=== PATIENT | male | born 1960 | race Caucasian/White ===

== ENCOUNTER 2016-03-03 09:00 | Outpatient (RCR) | payer OTHER ==
[~2016-03-03 09:00] MED LIST: /ADVA50050 INH; /AUGM875TA OR; /ESCI10TA OR; ALBUTEROL INH; AMOX50SS OR; ASPI81TA83 OR; BISAC5TA PO; BP MED PO; CHAN0.5P6 PO; COLA50CA3 PO; COMBIN INH; CORTISPORIN AU; DIOV160T5 OR; DUONSOL IN; FOLI1TAB OR; FOLI1TAB86 PO; GLUC500T OR; HYDR25TA6 OR; LEVOTHYROID PO; LEXAPRO PO; LORA1TAB PO; Lortab Elixir OR; NEBUMIS2 XX; NICO14DI TOP; OXAZ15CA PO; PERC7.5T12 PO; PRED15SO3 OR; PRED20TA PO; PROAAER IN; PULM1SUS IN; TRAZ50TA2 PO; VITAMIN B1 PO; ZEST10TA OR; ZOCO40TA OR; amoxil PO; deltasone; nexium; saline nasal spray
== END 2016-03-11 ==
LOC: M ST 09:00
PROVIDERS: ATTEND Otolaryngology
DX: C32.0 Malignant neoplasm of glottis (principal); Z93.0 Tracheostomy status
CPT/HCPCS: 92597; G9174; G9175; G9176

== ENCOUNTER 2016-03-13 08:30 | Outpatient (RCR) | payer OTHER | END 2016-04-08 | LOC: M ST 08:30 | PROVIDERS: ATTEND Otolaryngology | DX: C32.9 Malignant neoplasm of larynx, unspecified (principal); Z43.0 Encounter for attention to tracheostomy | CPT/HCPCS: 92597; G9174; G9175; G9176 ==

== ENCOUNTER 2016-04-29 08:56 | Outpatient (RCR) | payer MEDICAID, OTHER, SELFPAY | END 2016-05-09 | LOC: M ST 08:56 | PROVIDERS: ATTEND Otolaryngology | DX: Z51.89 Encounter for other specified aftercare (principal); Z93.0 Tracheostomy status ==

== ENCOUNTER 2016-05-12 09:54 | Outpatient (RCR) | payer MEDICAID, OTHER | END 2016-06-08 | LOC: M ST 09:54 | PROVIDERS: ATTEND Otolaryngology | DX: Z51.89 Encounter for other specified aftercare (principal); C32.0 Malignant neoplasm of glottis; Z43.0 Encounter for attention to tracheostomy; Z93.0 Tracheostomy status ==

== ENCOUNTER 2016-06-25 08:00 | Outpatient (RCR) | payer OTHER | END 2016-07-09 | LOC: M ST 08:00 | PROVIDERS: ATTEND Otolaryngology | DX: Z51.89 Encounter for other specified aftercare (principal); C32.0 Malignant neoplasm of glottis; Z43.0 Encounter for attention to tracheostomy; Z93.0 Tracheostomy status ==

== ENCOUNTER → 2016-06-26 | Outpatient (CLI) | payer OTHER ==
[2016-06-26 09:39] LABS: BASO % 0.4 % (0.0-1.0); EOS # 0.2 K/mm3 (0.0-0.50); EOS % 1.8 % (0.0-3.0); LARGE UNSTAINED CELL # 0.1 K/mm3 (0.0-0.4); LARGE UNSTAINED CELL % 1.3 % (0.0-4.0); LYMPH # 0.9 K/mm3 (1.5-4.5); LYMPH % 10.1 % (24.0-44.0); MEAN CORPUSCULAR HEMOGLOBIN 33.2 pg (27.0-33.0); MEAN CORPUSCULAR HGB CONC 35.4 g/dl (32.0-36.5); MEAN CORPUSCULAR VOLUME 93.7 fl (80.0-96.0); MONO # 0.7 K/mm3 (0.0-0.8); MONO % 8.1 % (0.0-5.0); NEUTROPHILS # 6.7 K/mm3 (1.8-7.7); NEUTROPHILS % 78.3 % (36.0-66.0); PLATELET COUNT, AUTOMATED 194 k/mm3 (150-450); WHITE BLOOD COUNT 8.5 K/mm3 (4.0-10.0)
[2016-06-26 09:41] LABS: ALBUMIN 3.5 GM/DL (3.2-5.2); ALBUMIN/GLOBULIN RATIO 1.21 (1.00-1.93); ALKALINE PHOSPHATASE 50 U/L (45-117); ALT/SGPT 27 U/L (12-78); ANION GAP 8 MEQ/L (8-16); AST/SGOT 21 U/L (15-37); BILIRUBIN,TOTAL 0.9 MG/DL (0.2-1.0); BLOOD UREA NITROGEN 8 MG/DL (7-18); CALCIUM LEVEL 8.6 MG/DL (8.5-10.1); CARBON DIOXIDE LEVEL 27 MEQ/L (21-32); CHLORIDE LEVEL 107 MEQ/L (98-107); CHOLESTEROL LEVEL 153 MG/DL (<200); CREATININE FOR GFR 0.92 MG/DL (0.70-1.30); GLOMERULAR FILTRATION RATE > 60.0 (>56); GLUCOSE, FASTING 156 MG/DL (70-105); POTASSIUM SERUM 4.1 MEQ/L (3.5-5.1); SODIUM LEVEL 142 MEQ/L (136-145); TOTAL PROTEIN 6.4 GM/DL (6.4-8.2); TRIGLYCERIDES LEVEL 110 MG/DL (<150)
== END ==
LOC: M LAB 08:51
PROVIDERS: ATTEND Nurse Practitioner Family
DX: I10 Essential (primary) hypertension (principal); E11.9 Type 2 diabetes mellitus without complications

== ENCOUNTER → 2016-07-08 | Outpatient (CLI) | payer OTHER ==
--- NOTE | 2016-07-09 08:39 | REP ---
Abdominal right upper quadrant ultrasound for elevated liver function tests: Comparison is a CT abdomen pelvis dated 11/12 2015 that demonstrated hepato steatosis. The gallbladder is partially contracted and not optimally evaluated. The patient stated he was not instructed to be n.p.o. prior to the study and had coffee prior to the examination. There is a negative Santamaria's sign to transducer pressure. No cholelithiasis is identified, however the study is somewhat insensitive in the absence of complete gallbladder distension. There is no intrahepatic or extrahepatic biliary duct dilatation. The common duct measures 5 mm in diameter. The hepatic parenchyma is attenuating and coarsened compatible with hepato steatosis. No focal hepatic masses are identified. The pancreas is obscured by bowel gas. The right kidney demonstrates no calculus, hydronephrosis, mass or cyst. Right kidney is normal size measuring 12.4 cm craniocaudad length. Impression: There are ultrasonographic findings compatible with hepato steatosis. There are no focal hepatic masses. No biliary duct dilatation. No ascites. Pancreas is obscured by bowel gas. Signed by Colby Thornton MD 07/09/2016 08:30 A
== END ==
LOC: M RAD 09:01
PROVIDERS: ATTEND Nurse Practitioner Family
DX: R79.89 Other specified abnormal findings of blood chemistry (principal)

== ENCOUNTER 2016-07-21 12:30 | Outpatient (RCR) | payer OTHER | END 2016-08-08 | LOC: M ST 12:30 | PROVIDERS: ATTEND Otolaryngology | DX: Z51.89 Encounter for other specified aftercare (principal); Z93.0 Tracheostomy status; C32.0 Malignant neoplasm of glottis ==

== ENCOUNTER 2016-08-15 08:31 | Outpatient (RCR) | payer OTHER | END 2016-09-08 | LOC: M ST 08:31 | PROVIDERS: ATTEND Otolaryngology | DX: Z51.89 Encounter for other specified aftercare (principal); C32.0 Malignant neoplasm of glottis; Z43.0 Encounter for attention to tracheostomy ==

== ENCOUNTER → 2016-11-04 | Outpatient (REF) | payer OTHER | LOC: M SFHCPLAZ 09:47 | PROVIDERS: ATTEND Nurse Practitioner Family | DX: E11.9 Type 2 diabetes mellitus without complications (principal); I10 Essential (primary) hypertension; E03.9 Hypothyroidism, unspecified; Z53.9 Procedure and treatment not carried out, unspecified reason ==

== ENCOUNTER → 2016-11-05 | Outpatient (REF) | payer OTHER ==
[2016-11-05 12:02] LABS: BASO # 0.1 10^3/uL (0.0-0.2); BASO % 1.2 % (0.0-1.0); EOS # 0.3 10^3/uL (0.0-0.50); EOS % 6.9 % (0.0-3.0); IMMATURE GRANULOCYTE % 0.5 % (0-0); LYMPH % 22.6 % (24.0-44.0); MEAN CORPUSCULAR HEMOGLOBIN 33.7 pg (27.0-33.0); MEAN CORPUSCULAR HGB CONC 35.7 g/dl (32.0-36.5); MEAN CORPUSCULAR VOLUME 94.5 fl (80.0-96.0); MONO # 0.6 10^3/uL (0.0-0.8); NEUTROPHILS # 2.3 10^3/uL (1.8-7.7); NEUTROPHILS % 54.8 % (36.0-66.0); PLATELET COUNT, AUTOMATED 174 10^3/uL (150-450); RED CELL DISTRIBUTION WIDTH 12.8 % (11.5-14.5); WHITE BLOOD COUNT 4.2 10^3/uL (4.0-10.0)
[2016-11-05 12:29] LABS: ALBUMIN 3.8 GM/DL (3.2-5.2); ALBUMIN/GLOBULIN RATIO 1.15 (1.00-1.93); ALKALINE PHOSPHATASE 61 U/L (45-117); ALT/SGPT 85 U/L (12-78); ANION GAP 9 MEQ/L (8-16); AST/SGOT 78 U/L (15-37); BLOOD UREA NITROGEN 9 MG/DL (7-18); CALCIUM LEVEL 9.4 MG/DL (8.5-10.1); CARBON DIOXIDE LEVEL 24 MEQ/L (21-32); CHLORIDE LEVEL 108 MEQ/L (98-107); CHOLESTEROL LEVEL 143 MG/DL (<200); CREATININE FOR GFR 0.84 MG/DL (0.70-1.30); GLOMERULAR FILTRATION RATE > 60.0 (>56); GLUCOSE, FASTING 119 MG/DL (70-105); POTASSIUM SERUM 3.7 MEQ/L (3.5-5.1); SODIUM LEVEL 141 MEQ/L (136-145); TOTAL PROTEIN 7.1 GM/DL (6.4-8.2); TRIGLYCERIDES LEVEL 161 MG/DL (<150)
== END ==
LOC: M SFHCPLAZ 09:14
PROVIDERS: ATTEND Nurse Practitioner Family
DX: E11.9 Type 2 diabetes mellitus without complications (principal); I10 Essential (primary) hypertension; E03.9 Hypothyroidism, unspecified

== ENCOUNTER 2016-12-26 12:58 | Outpatient (RCR) | payer OTHER | END 2017-01-08 | LOC: M ST 12:58 | PROVIDERS: ATTEND Otolaryngology | DX: Z51.89 Encounter for other specified aftercare (principal); Z43.0 Encounter for attention to tracheostomy ==

== ENCOUNTER 2017-01-27 09:29 | Outpatient (RCR) | payer OTHER | END 2017-02-08 | LOC: M ST 09:29 | DX: Z90.02 Acquired absence of larynx (principal) | CPT/HCPCS: 92597 ==

== ENCOUNTER → 2017-02-16 | Outpatient (CLI) | payer OTHER | LOC: M RAD 08:51 | DX: Z12.2 Encounter for screening for malignant neoplasm of respiratory organs (principal); J44.9 Chronic obstructive pulmonary disease, unspecified | CPT/HCPCS: G0297 ==

== ENCOUNTER 2017-02-25 09:59 | Outpatient (RCR) | payer OTHER | END 2017-03-11 | LOC: M ST 09:59 | DX: Z51.89 Encounter for other specified aftercare (principal); Z90.02 Acquired absence of larynx | CPT/HCPCS: 92524 ==

== ENCOUNTER 2017-06-03 12:57 | Outpatient (RCR) | payer OTHER | END 2017-06-08 | LOC: M ST 12:57 | DX: Z51.89 Encounter for other specified aftercare (principal); Z90.02 Acquired absence of larynx | CPT/HCPCS: 92597 ==

== ENCOUNTER 2017-06-24 13:04 | Outpatient (RCR) | payer OTHER | END 2017-07-09 | LOC: M ST 13:04 | DX: Z51.89 Encounter for other specified aftercare (principal); Z90.02 Acquired absence of larynx ==

== ENCOUNTER → 2017-08-04 | Outpatient (CLI) | payer OTHER ==
[2017-08-04 14:04] LABS: BASO % 0.5 % (0.0-1.0); EOS # 0.1 10^3/uL (0.0-0.50); EOS % 2.9 % (0.0-3.0); HEMATOCRIT 44.8 % (42.0-52.0); HEMOGLOBIN 16.3 g/dl (13.5-17.5); IMMATURE GRANULOCYTE % 0.2 % (0-3.0); LYMPH # 0.7 10^3/uL (1.5-4.5); LYMPH % 17.6 % (24.0-44.0); MEAN CORPUSCULAR HGB CONC 36.4 g/dl (32.0-36.5); MEAN CORPUSCULAR VOLUME 90.7 fl (80.0-96.0); MONO # 0.5 10^3/uL (0.0-0.8); MONO % 11.8 % (0.0-5.0); NEUTROPHILS # 2.8 10^3/uL (1.8-7.7); PLATELET COUNT, AUTOMATED 135 10^3/uL (150-450); RED BLOOD COUNT 4.94 10^6/uL (4.30-6.10); RED CELL DISTRIBUTION WIDTH 13.7 % (11.5-14.5); WHITE BLOOD COUNT 4.1 10^3/uL (4.0-10.0)
[2017-08-04 14:24] LABS: ALBUMIN 3.5 GM/DL (3.2-5.2); ALBUMIN/GLOBULIN RATIO 0.85 (1.00-1.93); ALKALINE PHOSPHATASE 65 U/L (45-117); ALT/SGPT 40 U/L (12-78); ANION GAP 12 MEQ/L (8-16); AST/SGOT 40 U/L (7-37); BILIRUBIN,TOTAL 1.3 MG/DL (0.2-1.0); BLOOD UREA NITROGEN 7 MG/DL (7-18); CALCIUM LEVEL 8.6 MG/DL (8.5-10.1); CARBON DIOXIDE LEVEL 28 MEQ/L (21-32); CHLORIDE LEVEL 111 MEQ/L (98-107); CHOLESTEROL LEVEL 149 MG/DL (<200); CHOLESTEROL RISK RATIO 2.292 (<5); CREATININE FOR GFR 0.81 MG/DL (0.70-1.30); GLOMERULAR FILTRATION RATE > 60.0 (>56); GLUCOSE, FASTING 149 MG/DL (70-100); HDL CHOLESTEROL 65 MG/DL (>40); LDL CHOLESTEROL 54.8 MG/DL (<100); NON-HDL-C 84 MG/DL; POTASSIUM SERUM 4.1 MEQ/L (3.5-5.1); SODIUM LEVEL 151 MEQ/L (136-145); THYROID STIMULATING HORMONE 0.273 uIU/ML (0.358-3.740); TOTAL PROTEIN 7.6 GM/DL (6.4-8.2); TRIGLYCERIDES LEVEL 146 MG/DL (<150)
[2017-08-04 14:26] LABS: ESTIMATED AVERAGE GLUCOSE 111 MG/DL (60-110); HEMOGLOBIN A1c 5.5 %
[2017-08-04 14:48] LABS: CREATININE, URINE 57.1 MG/DL; MALB URINE SIEMENS 5.4 MG/L; MAU/CREAT RATIO 9.4 MCG/MG (0.0-30.0)
== END ==
LOC: M LAB 13:19
DX: I10 Essential (primary) hypertension (principal); E11.9 Type 2 diabetes mellitus without complications; E03.9 Hypothyroidism, unspecified
CPT/HCPCS: 84443

== ENCOUNTER 2017-08-05 08:58 | Outpatient (RCR) | payer OTHER | END 2017-08-08 | LOC: M ST 08:58 | DX: Z90.02 Acquired absence of larynx (principal) | CPT/HCPCS: 92597 ==

== ENCOUNTER 2017-09-01 09:00 | Outpatient (RCR) | payer OTHER | END 2017-09-08 | LOC: M ST 09:00 | DX: Z90.02 Acquired absence of larynx (principal) | CPT/HCPCS: 92597 ==

== ENCOUNTER 2017-09-29 13:44 | Outpatient (RCR) | payer OTHER | END 2017-10-09 | LOC: M ST 13:44 | DX: Z51.89 Encounter for other specified aftercare (principal); Z98.890 Other specified postprocedural states | CPT/HCPCS: 92597 ==

== ENCOUNTER → 2017-11-05 | Outpatient (CLI) | payer OTHER | LOC: M ST 09:01 | DX: Z90.02 Acquired absence of larynx (principal) | CPT/HCPCS: 92597 ==

== ENCOUNTER → 2017-11-19 | Outpatient (REF) | payer OTHER ==
[2017-11-20 11:35] LABS: HEMATOCRIT 42.5 % (42.0-52.0); HEMOGLOBIN 15.3 g/dl (13.5-17.5); MEAN CORPUSCULAR HEMOGLOBIN 33.3 pg (27.0-33.0); MEAN CORPUSCULAR VOLUME 92.6 fl (80.0-96.0); PLATELET COUNT, AUTOMATED 151 10^3/uL (150-450); RED BLOOD COUNT 4.59 10^6/uL (4.30-6.10); RED CELL DISTRIBUTION WIDTH 13.2 % (11.5-14.5); WHITE BLOOD COUNT 4.5 10^3/uL (4.0-10.0)
[2017-11-20 12:24] LABS: ANION GAP 11 MEQ/L (8-16); BLOOD UREA NITROGEN 9 MG/DL (7-18); CALCIUM LEVEL 8.4 MG/DL (8.5-10.1); CARBON DIOXIDE LEVEL 26 MEQ/L (21-32); CHLORIDE LEVEL 105 MEQ/L (98-107); CREATININE FOR GFR 0.85 MG/DL (0.70-1.30); GLOMERULAR FILTRATION RATE > 60.0 (>56); GLUCOSE, FASTING 140 MG/DL (70-100); POTASSIUM SERUM 3.9 MEQ/L (3.5-5.1); SODIUM LEVEL 142 MEQ/L (136-145)
== END ==
LOC: M SFHCCLAY 14:27
DX: H25.9 Unspecified age-related cataract (principal)
CPT/HCPCS: 80048

== ENCOUNTER 2017-12-02 09:56 | Day surgery (SDC) | payer OTHER ==
[2017-12-02] MEDS: ACETYLCHOLINE OPHTH SOLN 1% 2ML (MIOCHOL-E) As Ordered (06:43)
[~2017-12-02 09:56] MED LIST changes: -/ADVA50050 INH; -/AUGM875TA OR; -/ESCI10TA OR; +ACETAMINOPHEN 325 MG TAB PO; -ALBUTEROL INH; -AMOX50SS OR; -ASPI81TA83 OR; -BISAC5TA PO; -BP MED PO; -CHAN0.5P6 PO; -COLA50CA3 PO; -COMBIN INH; -CORTISPORIN AU; -DIOV160T5 OR; -DUONSOL IN; -FOLI1TAB OR; -FOLI1TAB86 PO; -GLUC500T OR; -HYDR25TA6 OR; -LEVOTHYROID PO; -LEXAPRO PO; -LORA1TAB PO; -Lortab Elixir OR; -NEBUMIS2 XX; -NICO14DI TOP; -OXAZ15CA PO; -PERC7.5T12 PO; +PHENYLEPHRINE HCL 10 % OPHTH. SOL 5ML OS; -PRED15SO3 OR; -PRED20TA PO; -PROAAER IN; +PROPARACAINE 0.5% OPHTH SOL 15ML OS; -PULM1SUS IN; -TRAZ50TA2 PO; -VITAMIN B1 PO; -ZEST10TA OR; -ZOCO40TA OR; -amoxil PO; -deltasone; -nexium; -saline nasal spray
[2017-12-02 10:31] LABS: BEDSIDE GLUCOSE 138 MG/DL (70-105)
[2017-12-02] MEDS: PHENYLEPHRINE 2.5% OPHTH SOL 2ML OS (10:35)
[2017-12-02] MEDS: TROPICAMIDE 1% OPHTH SOLN 2ML OS (10:35)
[2017-12-02] MEDS: CYCLOPENTOLATE 2% OPHTH SOLN 2ML BTL OS (10:35)
[2017-12-02] MEDS: LIDOCAINE 3.5 % 1ML OPHTH TOPICAL GEL OU (10:36)
[2017-12-02] MEDS: OFLOXACIN 0.3 % (OCUFLOX) OPTH SOL 5ML OS (10:36)
[2017-12-02] MEDS ORDERED: fentaNYL 100 MCG/2 ML INJECTION (J3010) As Ordered (11:00)
[2017-12-02] MEDS ORDERED: MIDAZOLAM INJ 2 MG/2 ML VIAL (J2250) As Ordered (11:00)
[2017-12-02] MEDS: LIDOCAINE 1% SDV 5 ML VIAL As Ordered (11:27)
[2017-12-02] MEDS: CEFUROXIME 1MG/0.1ML INTRACAMERAL INJ As Ordered (11:27)
[2017-12-02] MEDS: POVIDONE-IODINE 5% OPHTH PREP SOL 30ML As Ordered (11:27)
[2017-12-02] MEDS: BALANCED SALT IRRIGATION SOLUTION 500ML BAG (FOR OR EYE MACHINE) As Ordered (11:34)
[2017-12-02] MEDS: HEALON DUET (HEALON 10MG/ML 0.55ML & HEALON ENDOCOAT 30MG/ML 0.85ML) As Ordered (11:34)
[2017-12-02] MEDS: AcetaZOLAMIDE 500 MG ER CAP PO (11:40)
[2017-12-02] MEDS ORDERED: AcetaZOLAMIDE 500 MG ER CAP As Ordered (11:53)
[2017-12-02] MEDS ORDERED: KETOROLAC 0.5% OPHTH SOLN OS (12:00)
[2017-12-02] MEDS ORDERED: TRIMETHOBENZAMIDE 300 MG CAP PO (12:00)
== END 2017-12-02 12:00 | disposition home or self-care (01) ==
LOC: M SDC 09:56
DX: H25.12 Age-related nuclear cataract, left eye (principal); E11.9 Type 2 diabetes mellitus without complications; E03.9 Hypothyroidism, unspecified; K21.9 Gastro-esophageal reflux disease without esophagitis; F32.9 Major depressive disorder, single episode, unspecified; Z92.3 Personal history of irradiation; J44.9 Chronic obstructive pulmonary disease, unspecified; Z79.899 Other long term (current) drug therapy; Z79.51 Long term (current) use of inhaled steroids; Z87.891 Personal history of nicotine dependence; Z85.818 Personal history of malignant neoplasm of other sites of lip, oral cavity, and pharynx
CPT/HCPCS: 66984

== ENCOUNTER 2017-12-04 12:15 | Outpatient (RCR) | payer OTHER | END 2017-12-09 | LOC: M ST 12:15 | DX: Z98.890 Other specified postprocedural states (principal) | CPT/HCPCS: 92597 ==

== ENCOUNTER → 2018-01-08 | Outpatient (RCR) | payer OTHER | LOC: M ST 10:35 | DX: Z90.02 Acquired absence of larynx (principal) | CPT/HCPCS: 92597 ==

== ENCOUNTER 2018-03-04 08:47 | Outpatient (RCR) | payer OTHER ==
[~2018-03-04 08:47] MED LIST changes: +/ADVA50050 INH; +/AUGM875TA OR; +/ESCI10TA OR; -ACETAMINOPHEN 325 MG TAB PO; +ALBU83IN INH; +ALBUTEROL INH; +AMLO2.5T3 PO; +AMOX50SS OR; +ASPI81TA83 OR; +BISAC5TA PO; +BP MED PO; +BROV15NE INH; +BUDE0.5S6 INH; +BUPR1TAB53 PO; +CHAN0.5P6 PO; +COLA50CA3 PO; +COMBIN INH; +CORTISPORIN AU; +DIOV160T5 OR; +DUONSOL IN; +FOLI1TAB OR; +FOLI1TAB11 PO; +FOLI1TAB86 PO; +GLUC500T OR; +HYDR25TA6 OR; +LEVO125T4 PO; +LEVOTHYROID PO; +LEXAPRO PO; +LORA1TAB PO; +LOSA100T50 PO; +Lortab Elixir OR; +NEBUMIS2 XX; +NICO14DI TOP; +OMEP20CA3 PO; +OXAZ15CA PO; +PERC7.5T12 PO; -PHENYLEPHRINE HCL 10 % OPHTH. SOL 5ML OS; +PRED15SO3 OR; +PRED20TA PO; +PROAAER IN; -PROPARACAINE 0.5% OPHTH SOL 15ML OS; +PULM1SUS IN; +TRAZ50TA2 PO; +VITAMIN B1 PO; +ZEST10TA OR; +ZOCO40TA OR; +amoxil PO; +deltasone; +nexium; +saline nasal spray
== END 2018-03-11 ==
LOC: M ST 08:47
PROVIDERS: ATTEND Otolaryngology
DX: Z51.89 Encounter for other specified aftercare (principal); Z98.890 Other specified postprocedural states; Z90.02 Acquired absence of larynx

== ENCOUNTER → 2018-04-08 | Outpatient (RCR) | payer OTHER | LOC: M ST 10:05 | PROVIDERS: ATTEND Otolaryngology | DX: Z51.89 Encounter for other specified aftercare (principal); Z90.02 Acquired absence of larynx; Z85.818 Personal history of malignant neoplasm of other sites of lip, oral cavity, and pharynx ==

== ENCOUNTER 2018-06-02 11:39 | Outpatient (RCR) | payer OTHER ==
[~2018-06-02 11:39] MED LIST changes: -/ADVA50050 INH; -/ESCI10TA OR; +ADVA1AER2 INH; +LEXA1TAB OR; +LEXA1TAB PO; -LEXAPRO PO
== END 2018-06-08 ==
LOC: M ST 11:39
PROVIDERS: ATTEND Otolaryngology
DX: Z90.02 Acquired absence of larynx (principal)

== ENCOUNTER → 2018-07-23 | Outpatient (CLI) | payer OTHER | LOC: M ST 13:50 | PROVIDERS: ATTEND Otolaryngology | DX: Z96.3 Presence of artificial larynx (principal) ==

== ENCOUNTER 2018-08-04 13:00 | Outpatient (RCR) | payer OTHER | END 2018-08-08 | LOC: M ST 13:00 | PROVIDERS: ATTEND Otolaryngology | DX: Z90.02 Acquired absence of larynx (principal) ==

== ENCOUNTER → 2018-08-09 | Outpatient (CLI) | payer OTHER ==
[~2018-08-09] MED LIST changes: +OMEP1CAP73 PO; -OMEP20CA3 PO
--- NOTE | 2018-08-09 13:41 | REP ---
REASON: Tobacco abuse. COMPARISON: Multiple, the latest 02/16/2017. As per the protocol only lung window images were sent to the read station for interpretation. No abnormal nodules, masses, or opacities have developed. Grossly, there is no change in appearance of the mediastinum or pulmonary sara. There is no mass or adenopathy. The imaged upper abdomen and imaged osseous structures are grossly within normal limits and unchanged from the prior exam. IMPRESSION: No change from the prior exam. Lung-RADS category 1. Electronically Signed by Ayaan Hamilton DO 08/09/2018 03:28 P
== END ==
LOC: M RAD 12:48
PROVIDERS: ATTEND Physician Assistant
DX: Z87.891 Personal history of nicotine dependence (principal)

== ENCOUNTER → 2018-09-13 | Outpatient (CLI) | payer OTHER ==
[~2018-09-13] MED LIST changes: -OMEP1CAP73 PO; +OMEP20CA4 PO
[2018-09-13 11:41] LABS: BASO # 0.1 10^3/uL (0.0-0.2); BASO % 1.4 % (0.0-1.0); EOS # 0.2 10^3/uL (0.0-0.50); EOS % 4.2 % (0.0-3.0); HEMATOCRIT 42.1 % (42.0-52.0); LYMPH # 0.9 10^3/uL (1.5-4.5); LYMPH % 20.4 % (24.0-44.0); MEAN CORPUSCULAR HGB CONC 35.6 g/dl (32.0-36.5); MEAN CORPUSCULAR VOLUME 95.5 fl (80.0-96.0); MONO # 0.5 10^3/uL (0.0-0.8); MONO % 11.7 % (0.0-5.0); NEUTROPHILS # 2.6 10^3/uL (1.8-7.7); NEUTROPHILS % 61.8 % (36.0-66.0); PLATELET COUNT, AUTOMATED 210 10^3/uL (150-450); RED BLOOD COUNT 4.41 10^6/uL (4.30-6.10); WHITE BLOOD COUNT 4.3 10^3/uL (4.0-10.0)
[2018-09-13 12:05] LABS: HEMOGLOBIN A1c 6.1 %
[2018-09-13 12:14] LABS: ALBUMIN 3.6 GM/DL (3.2-5.2); ALT/SGPT 51 U/L (12-78); BILIRUBIN,TOTAL 0.9 MG/DL (0.2-1.0); BLOOD UREA NITROGEN 9 MG/DL (7-18); CARBON DIOXIDE LEVEL 29 MEQ/L (21-32); CHLORIDE LEVEL 108 MEQ/L (98-107); CHOLESTEROL LEVEL 149 MG/DL (<200); CHOLESTEROL RISK RATIO 2.403 (<5); GLOMERULAR FILTRATION RATE > 60.0 (>56); GLUCOSE, FASTING 190 MG/DL (70-100); HDL CHOLESTEROL 62 MG/DL (>40); LDL CHOLESTEROL 70 MG/DL (<100); NON-HDL-C 87 MG/DL; POTASSIUM SERUM 4.2 MEQ/L (3.5-5.1); SODIUM LEVEL 143 MEQ/L (136-145); TOTAL PROTEIN 6.6 GM/DL (6.4-8.2); TRIGLYCERIDES LEVEL 83 MG/DL (<150)
[2018-09-13 12:14] LABS: CREATININE, URINE 91.5 MG/DL; MALB URINE SIEMENS 6.9 MG/L; MAU/CREAT RATIO 7.5 MCG/MG (0.0-30.0)
== END ==
LOC: M LAB 10:39
PROVIDERS: ATTEND Nurse Practitioner Family
DX: I10 Essential (primary) hypertension (principal); E11.9 Type 2 diabetes mellitus without complications; E03.9 Hypothyroidism, unspecified; R79.89 Other specified abnormal findings of blood chemistry

== ENCOUNTER → 2018-09-14 | Outpatient (CLI) | payer OTHER | LOC: M ST 08:49 | PROVIDERS: ATTEND Otolaryngology | DX: Z98.890 Other specified postprocedural states (principal) ==

== ENCOUNTER → 2018-09-21 | Outpatient (CLI) | payer OTHER ==
--- NOTE | 2018-09-21 11:15 | REP ---
RIGHT UPPER QUADRANT SONOGRAPHY: HISTORY: Elevated LFTs. FINDINGS: Scanning through right upper quadrant of the abdomen demonstrates a normal sized thin-walled gallbladder without visible stone or polyp. Common bile duct is normal measuring 0.5 cm in greatest diameter. Liver is somewhat hyperechoic diffusely which may reflect mild fatty infiltration. No focal liver lesion is appreciated. The pancreas is obscured by abdominal gas. There is no evidence of ascites or right renal abnormality. The right kidney measures 11.4 x 7.3 x 6.2 cm. IMPRESSION: Mildly echogenic liver parenchyma consistent with fatty infiltration. Otherwise negative right upper quadrant sonography. Pancreas is obscured by abdominal gas. Electronically Signed by Rayshawn Lorenzana MD 09/21/2018 07:33 P
== END ==
LOC: M RAD 08:11
PROVIDERS: ATTEND Nurse Practitioner Family
DX: R94.5 Abnormal results of liver function studies (principal)

== ENCOUNTER 2018-11-03 08:44 | Outpatient (RCR) | payer OTHER | END 2018-11-08 | LOC: M ST 08:44 | PROVIDERS: ATTEND Otolaryngology | DX: Z96.3 Presence of artificial larynx (principal) ==

== ENCOUNTER 2018-12-16 11:36 | Outpatient (RCR) | payer OTHER | END 2019-01-08 | LOC: M ST 11:36 | PROVIDERS: ATTEND Otolaryngology | DX: Z51.89 Encounter for other specified aftercare (principal) ==

== ENCOUNTER 2019-02-15 09:59 | Outpatient (RCR) | payer OTHER ==
[~2019-02-15 09:59] MED LIST changes: +OMEP1CAP73 PO; -OMEP20CA4 PO
== END 2019-03-11 ==
LOC: M ST 09:59
PROVIDERS: ATTEND Otolaryngology
DX: Z90.02 Acquired absence of larynx (principal); Z43.0 Encounter for attention to tracheostomy; Z51.89 Encounter for other specified aftercare; C32.0 Malignant neoplasm of glottis

== ENCOUNTER → 2019-03-08 | Outpatient (REF) | payer OTHER ==
[2019-03-08 18:41] LABS: ALBUMIN 4.2 GM/DL (3.2-5.2); ALT/SGPT 66 U/L (12-78); BILIRUBIN,TOTAL 1.1 MG/DL (0.2-1.0); BLOOD UREA NITROGEN 11 MG/DL (7-18); CALCIUM LEVEL 9.5 MG/DL (8.5-10.1); CARBON DIOXIDE LEVEL 27 MEQ/L (21-32); CHLORIDE LEVEL 108 MEQ/L (98-107); CHOLESTEROL LEVEL 150 MG/DL (<200); CHOLESTEROL RISK RATIO 2.142 (<5); CREATININE FOR GFR 0.88 MG/DL (0.70-1.30); GLOMERULAR FILTRATION RATE > 60.0 (>56); GLUCOSE, FASTING 175 MG/DL (70-100); HDL CHOLESTEROL 70 MG/DL (>40); LDL CHOLESTEROL 65 MG/DL (<100); NON-HDL-C 80 MG/DL; POTASSIUM SERUM 4.3 MEQ/L (3.5-5.1); SODIUM LEVEL 142 MEQ/L (136-145); TOTAL PROTEIN 7.5 GM/DL (6.4-8.2); TRIGLYCERIDES LEVEL 73 MG/DL (<150)
[2019-03-08 18:45] LABS: BASO # 0.1 10^3/uL (0.0-0.2); BASO % 0.9 % (0.0-1.0); EOS # 0.1 10^3/uL (0.0-0.5); EOS % 1.8 % (0.0-3.0); HEMATOCRIT 47.8 % (42.0-52.0); HEMOGLOBIN 16.4 g/dl (13.5-17.5); LYMPH # 0.7 10^3/uL (1.5-5.0); LYMPH % 12.3 % (24.0-44.0); MEAN CORPUSCULAR HEMOGLOBIN 33.1 pg (27.0-33.0); MEAN CORPUSCULAR HGB CONC 34.3 g/dl (32.0-36.5); MEAN CORPUSCULAR VOLUME 96.4 fl (80.0-96.0); MONO # 0.8 10^3/uL (0.0-0.8); MONO % 14.7 % (0.0-5.0); NEUTROPHILS % 69.8 % (36.0-66.0); PLATELET COUNT, AUTOMATED 207 10^3/uL (150-450); RED BLOOD COUNT 4.96 10^6/uL (4.30-6.10); WHITE BLOOD COUNT 5.7 10^3/uL (4.0-10.0)
[2019-03-08 19:03] LABS: HEMOGLOBIN A1c 6.1 %
== END ==
LOC: M SFHCCLAY 11:06
PROVIDERS: ATTEND Nurse Practitioner Family
DX: I10 Essential (primary) hypertension (principal); E11.9 Type 2 diabetes mellitus without complications

== ENCOUNTER 2019-03-31 08:59 | Outpatient (RCR) | payer OTHER | END 2019-04-09 | LOC: M PT 08:59 | PROVIDERS: ATTEND Otolaryngology | DX: Z47.89 Encounter for other orthopedic aftercare (principal); Z90.02 Acquired absence of larynx; Z51.89 Encounter for other specified aftercare; C32.0 Malignant neoplasm of glottis; Z93.0 Tracheostomy status ==

== ENCOUNTER 2019-04-19 09:44 | Outpatient (RCR) | payer OTHER | END 2019-05-10 | LOC: M ST 09:44 | PROVIDERS: ATTEND Otolaryngology | DX: Z90.02 Acquired absence of larynx (principal); Z43.0 Encounter for attention to tracheostomy; Z51.89 Encounter for other specified aftercare; C32.0 Malignant neoplasm of glottis; M54.2 Cervicalgia ==

== ENCOUNTER 2019-05-16 22:08 | Emergency (ER) | payer OTHER ==
[~2019-05-16] VITALS: Ht 190.5 cm; Wt 113.6 kg
[2019-05-16] MEDS ORDERED: OMEP-218 (22:17)
[2019-05-16 23:33] VITALS: BP 167/92
== END 2019-05-16 23:32 | disposition home or self-care (01) ==
LOC: M ED 22:08
DX: F10.220 Alcohol dependence with intoxication, uncomplicated (principal); E11.9 Type 2 diabetes mellitus without complications; I10 Essential (primary) hypertension; E03.9 Hypothyroidism, unspecified; J44.9 Chronic obstructive pulmonary disease, unspecified; F33.9 Major depressive disorder, recurrent, unspecified; F17.210 Nicotine dependence, cigarettes, uncomplicated; Z79.51 Long term (current) use of inhaled steroids; Z79.899 Other long term (current) drug therapy

== ENCOUNTER 2019-05-24 10:31 | Outpatient (RCR) | payer OTHER ==
[~2019-05-24 10:31] MED LIST changes: +OMEP-218
== END 2019-06-09 ==
LOC: M ST 10:31
PROVIDERS: ATTEND Otolaryngology
DX: Z43.0 Encounter for attention to tracheostomy (principal); Z90.02 Acquired absence of larynx; Z51.89 Encounter for other specified aftercare

== ENCOUNTER → 2019-06-01 | Outpatient (REF) | payer OTHER ==
[2019-06-01 16:39] LABS: BASO # 0.1 10^3/uL (0.0-0.2); BASO % 1.3 % (0.0-1.0); EOS # 0.1 10^3/uL (0.0-0.5); EOS % 2.2 % (0.0-3.0); HEMATOCRIT 42.9 % (42.0-52.0); HEMOGLOBIN 15.2 g/dl (13.5-17.5); LYMPH # 0.7 10^3/uL (1.5-5.0); LYMPH % 15.5 % (24.0-44.0); MEAN CORPUSCULAR HEMOGLOBIN 33.6 pg (27.0-33.0); MEAN CORPUSCULAR HGB CONC 35.4 g/dl (32.0-36.5); MEAN CORPUSCULAR VOLUME 94.7 fl (80.0-96.0); MONO # 0.5 10^3/uL (0.0-0.8); MONO % 12.1 % (0.0-5.0); PLATELET COUNT, AUTOMATED 193 10^3/uL (150-450); RED BLOOD COUNT 4.53 10^6/uL (4.30-6.10); WHITE BLOOD COUNT 4.5 10^3/uL (4.0-10.0)
[2019-06-01 16:41] LABS: ALBUMIN 3.8 GM/DL (3.2-5.2); ALT/SGPT 99 U/L (12-78); BLOOD UREA NITROGEN 11 MG/DL (7-18); CALCIUM LEVEL 9.5 MG/DL (8.5-10.1); CARBON DIOXIDE LEVEL 30 MEQ/L (21-32); CHLORIDE LEVEL 106 MEQ/L (98-107); CREATININE FOR GFR 0.82 MG/DL (0.70-1.30); GLOMERULAR FILTRATION RATE > 60.0 (>56); GLUCOSE, FASTING 211 MG/DL (70-100); MAGNESIUM LEVEL 1.9 MG/DL (1.8-2.4); POTASSIUM SERUM 4.1 MEQ/L (3.5-5.1); SODIUM LEVEL 141 MEQ/L (136-145)
== END ==
LOC: M SFHCCLAY 10:27
PROVIDERS: ATTEND Nurse Practitioner Family
DX: F10.20 Alcohol dependence, uncomplicated (principal); E83.42 Hypomagnesemia

== ENCOUNTER 2019-06-16 11:06 | Outpatient (RCR) | payer MEDICAID | END 2019-07-10 | LOC: M ST 11:06 | PROVIDERS: ATTEND Otolaryngology | DX: Z96.3 Presence of artificial larynx (principal) ==

== ENCOUNTER 2019-07-15 07:56 | Outpatient (RCR) | payer OTHER | END 2019-08-09 | LOC: M ST 07:56 | PROVIDERS: ATTEND Otolaryngology | DX: Z51.89 Encounter for other specified aftercare (principal); Z96.3 Presence of artificial larynx ==

== ENCOUNTER 2019-08-08 13:45 | Outpatient (RCR) | payer OTHER | END 2019-08-09 | LOC: M PT 13:45 | PROVIDERS: ATTEND Otolaryngology | DX: Z51.89 Encounter for other specified aftercare (principal); M54.2 Cervicalgia; M25.519 Pain in unspecified shoulder ==

== ENCOUNTER 2019-08-23 08:01 | Outpatient (RCR) | payer OTHER | END 2019-09-09 | LOC: M ST 08:01 | PROVIDERS: ATTEND Otolaryngology | DX: Z90.02 Acquired absence of larynx (principal) ==

== ENCOUNTER → 2019-10-06 | Outpatient (REF) | payer OTHER ==
[2019-10-06 19:48] LABS: ALBUMIN 4.1 GM/DL (3.2-5.2); ALT/SGPT 31 U/L (12-78); BILIRUBIN,TOTAL 1.1 MG/DL (0.2-1.0); BLOOD UREA NITROGEN 10 MG/DL (7-18); CALCIUM LEVEL 9.5 MG/DL (8.5-10.1); CARBON DIOXIDE LEVEL 32 MEQ/L (21-32); CHLORIDE LEVEL 106 MEQ/L (98-107); CREATININE FOR GFR 0.92 MG/DL (0.70-1.30); GLOMERULAR FILTRATION RATE > 60.0 (>56); GLUCOSE, FASTING 215 MG/DL (70-100); MAGNESIUM LEVEL 1.9 MG/DL (1.8-2.4); POTASSIUM SERUM 4.4 MEQ/L (3.5-5.1); SODIUM LEVEL 141 MEQ/L (136-145); TOTAL PROTEIN 7.2 GM/DL (6.4-8.2)
[2019-10-06 20:36] LABS: HEMOGLOBIN A1c 6.5 %
== END ==
LOC: M LABDRAWC 12:10
PROVIDERS: ATTEND Nurse Practitioner Family
DX: E11.9 Type 2 diabetes mellitus without complications (principal)

== ENCOUNTER 2019-10-12 09:12 | Outpatient (RCR) | payer OTHER, MEDICAID | END 2019-11-09 | LOC: M ST 09:12 | PROVIDERS: ATTEND Otolaryngology | DX: Z90.02 Acquired absence of larynx (principal); Z96.3 Presence of artificial larynx ==

== ENCOUNTER 2019-11-25 08:31 | Outpatient (RCR) | payer OTHER | END 2019-12-10 | LOC: M ST 08:31 | PROVIDERS: ATTEND Otolaryngology | DX: Z90.02 Acquired absence of larynx (principal); Z96.3 Presence of artificial larynx ==

== ENCOUNTER → 2019-12-14 | Outpatient (CLI) | payer OTHER ==
[2019-12-14 12:15] LABS: BLOOD UREA NITROGEN 9 MG/DL (7-18); CREATININE FOR GFR 0.85 MG/DL (0.70-1.30); GLOMERULAR FILTRATION RATE > 60.0 (>56)
== END ==
LOC: M LAB 10:35
PROVIDERS: ATTEND Otolaryngology
DX: R13.10 Dysphagia, unspecified (principal)

== ENCOUNTER → 2019-12-15 | Outpatient (CLI) | payer OTHER ==
[~2019-12-15] MED LIST changes: +ISOVUE-370 76% 100ML VIAL As Ordered ONE
--- NOTE | 2019-12-15 13:27 | REP ---
INDICATION: DYSPHAGIA, UNSPECIFIED. History of laryngectomy for laryngeal carcinoma in 2013. Regurgitating food. Rule out mass and esophageal dysmotility. COMPARISON: August 08, 2013.. TECHNIQUE: Helical scanning is acquired post contrast administration and 3 mm axial images are generated. Coronal and sagittal MPR images are generated. Contrast enhancement dose is 75 mL of intravenous Isovue 370. FINDINGS: Patient is status post total laryngectomy. Tracheostomy stoma appears patent. No evidence of recurrence mass lesion is seen the base of the neck. The lung apices are clear. Cervical esophagus is unremarkable. The nasopharynx and hypopharynx appear intact. Parotid glands are normal and symmetric. Thyroid glands have been removed. Submandibular glands are atrophic and or partially resected. No upper cervical lymphadenopathy is seen. There is heavy vascular calcification in the proximal ICA on the right with pinpoint stenosis in the proximal internal carotid artery. Moderate calcification is noted without high grade stenosis in the left proximal ICA. Vertebral arteries are patent and symmetric. The tongue and floor of mouth structures are unremarkable. On bone window settings there is no evidence of mandibular bony destructive lesion. Mild degenerative spondylosis changes are seen in the cervical spine. There is a unerupted left maxillary wisdom tooth in the floor of the left maxillary sinus. IMPRESSION: Status post laryngectomy and tracheostomy. No evidence of residual or recurrence neoplasm or adenopathy. High-grade stenoses in the proximal internal carotid arteries are felt to be present bilaterally, right more advanced than left. <Electronically signed by Rene Lorenzana > 12/15/19 [id number]
== END ==
LOC: M RAD 12:25
PROVIDERS: ATTEND Otolaryngology
DX: R13.10 Dysphagia, unspecified (principal)
CPT/HCPCS: 70491; Q9967

== ENCOUNTER 2019-12-21 17:36 | Outpatient (RCR) | payer OTHER ==
[~2019-12-21 17:36] MED LIST changes: -E-Z-GAS II EFFERVESCENT PACKET (SODIUM BICARB./CITRIC ACID/SIMETHICONE) As Ordered ONE; -E-Z-HD 98% w/w 340GM SUSP BTL As Ordered ONE; -E-Z-PAQUE 96% w/w SUSP 176GM BTL As Ordered ONE
== END 2020-01-09 ==
LOC: M ST 17:36
PROVIDERS: ATTEND Otolaryngology
DX: Z90.02 Acquired absence of larynx (principal); Z96.3 Presence of artificial larynx

== ENCOUNTER → 2019-12-21 | Outpatient (CLI) | payer OTHER ==
[~2019-12-21] MED LIST changes: +E-Z-GAS II EFFERVESCENT PACKET (SODIUM BICARB./CITRIC ACID/SIMETHICONE) As Ordered ONE; +E-Z-HD 98% w/w 340GM SUSP BTL As Ordered ONE; +E-Z-PAQUE 96% w/w SUSP 176GM BTL As Ordered ONE; -ISOVUE-370 76% 100ML VIAL As Ordered ONE
--- NOTE | 2019-12-21 17:13 | REP ---
INDICATION: DYSPHAGIA. TECHNIQUE: This procedure was performed by Shey Solis [facility], under the direct supervision of Dr. Lorenzana. Images were reviewed with Dr. Lorenzana prior to dictation. Liquid barium and gas producing crystals were given in the erect position, as well as liquid barium in the prone oblique position in order to perform a double contrast upper GI examination. FINDINGS: A single view PA chest x-ray is submitted as a biomass facilitator film. The superior mediastinal structures are midline. The heart size is within normal limits. The lungs are clear. Surgical clips are visualized from the patient's laryngeal ectomy for laryngeal carcinoma. The oral and pharyngeal stages of deglutition demonstrate a pooling of contrast in the hypopharynx with a delay in swallow. Once past the hypopharynx esophageal transport is prompt and efficient and there is no evidence of esophagitis, stricture, mass, or mucosal ring. However tertiary contractions were visualized throughout the exam. There is no evidence of a hiatal hernia. Gastroesophageal reflux was visualized to the level of the trudy.. 0.3 minutes of fluoroscopy time was utilized for this procedure. Some fluoroscopic images are performed with last image hold technology. These images require no additional radiation. IMPRESSION: 1. Pooling of contrast in the hypopharynx with a delay in swallow. 2. Tertiary contractions were visualized throughout the exam. 3. Gastroesophageal reflux to the level of the trudy. <Electronically signed by Shey Solis > 12/21/19 [id number] <Electronically signed by Rene Lorenzana > 12/21/19 [id number]
== END ==
LOC: M RAD 07:53
PROVIDERS: ATTEND Otolaryngology
DX: R13.10 Dysphagia, unspecified (principal)

== ENCOUNTER → 2019-12-30 | Outpatient (CLI) | payer OTHER ==
--- NOTE | 2020-01-17 09:16 | REP ---
INDICATION: STENOSIS OF CAROTID ART MAXIMILIANO COMPARISON: Comparison carotid sonography November 13, 2011.. TECHNIQUE: Real-time ultrasound evaluation and duplex Doppler interrogation of the extracranial carotid vasculature is performed. FINDINGS: Antegrade flow is observed in both vertebral arteries. Right carotid: The right common carotid artery shows diffuse intimal thickening but is otherwise unremarkable. There moderate mixed plaquing in the right carotid bulb and proximal ICA on two-dimensional scanning. Color flow and spectral Doppler interrogation are unremarkable on the right. Velocity chart right carotid: Right CCA PSV: 63 cm/S Right ICA PSV: 105 cm/S Right ICA EDV: 48 cm/S Right ECA PSV: 94 cm/S Right ICA/CCA ratio: 1.7 Left carotid: The left common carotid artery shows diffuse intimal thickening but is otherwise unremarkable. There is moderate mixed plaquing in the left carotid bulb and proximal ICA on two-dimensional scanning. Color flow and spectral Doppler interrogation are unremarkable on the left. Velocity chart left carotid: Left CCA PSV: 63 cm/S Left ICA PSV: 159 cm/S Left ICA EDV: 52 cm/S Left ECA PSV: 100 cm/S Left ICA/CCA ratio: 2.5 IMPRESSION: Less than 50% category narrowing in the right internal carotid artery by Doppler velocity criteria. 50-69% category narrowing in the left ICA by Doppler velocity criteria. Doppler velocities have increased somewhat in the left ICA in the interval since the 2011 study <Electronically signed by Rene Lorenzana > 01/17/20 0912
== END ==
LOC: M RAD 06:23
PROVIDERS: ATTEND Nurse Practitioner Family
DX: I65.23 Occlusion and stenosis of bilateral carotid arteries (principal)

== ENCOUNTER → 2020-01-18 | Outpatient (CLI) | payer OTHER ==
--- NOTE | 2020-01-18 14:56 | REP ---
INDICATION: ATHEROSCLEROSIS. COMPARISON: None. TECHNIQUE: Bilateral lower extremity arterial Doppler ultrasound. FINDINGS: Ankle brachial indices are measured at 1.0 on the right and 0.76 on the left. Normal triphasic waveforms are noted throughout the right lower extremity arteries. Mild to moderate plaquing is observed bilaterally. Monophasic arterial Doppler waveforms are noted at and distal to the mid superficial femoral artery artery on the left. Stenosis is seen at the mid SFA on the left with elevated systolic velocity. Right lower extremity arterial Doppler velocity chart: Right NEWS BROADCASTER PSV 161 cm/S Profundal 143 Proximal SFA 107 Mid SFA 93 Distal SFA 103 Popliteal 49 Proximal VAL 49 Tibial-peroneal trunk 49 Proximal BRIM MOLDER 53 Distal BRIM MOLDER 63 Distal VAL 58 Left lower extremity arterial Doppler velocity chart: Left NEWS BROADCASTER PSV 186 cm/S Profundal 196 Proximal SFA 146 Mid SFA 504 Distal SFA 49 Popliteal 51 Proximal VAL 33 Tibial-peroneal trunk 48 Proximal BRIM MOLDER 40 Distal BRIM MOLDER 33 Distal VAL 45 IMPRESSION: Left mid superficial femoral artery stenosis seen. <Electronically signed by Rene Lorenzana > 01/18/20 [id number]
== END ==
LOC: M RAD 10:36
PROVIDERS: ATTEND Physician Assistant
DX: I70.202 Unspecified atherosclerosis of native arteries of extremities, left leg (principal)

== ENCOUNTER → 2020-03-02 | Outpatient (CLI) | payer OTHER ==
[~2020-03-02] MED LIST changes: +CLOP75TA2 PO; +GABA-845 PO; +TIZA4CAP6 PO
== END ==
LOC: M ST 09:59
PROVIDERS: ATTEND Otolaryngology
DX: Z96.3 Presence of artificial larynx (principal)

== ENCOUNTER → 2020-03-07 | Outpatient (CLI) | payer OTHER ==
[~2020-03-07] MED LIST changes: +ISOVUE-300 61% 50ML VIAL As Ordered ONE; +LIDOCAINE 1% MDV 20ML VIAL As Ordered ONE; +MIDAZOLAM INJ 2MG/2ML VIAL (J2250 PER 1MG) As Ordered ONE; +fentaNYL 100 MCG/2 ML INJECTION (J3010) As Ordered ONE
[2020-03-07 09:22] LABS: HEMATOCRIT 45.1 % (42.0-52.0); MEAN CORPUSCULAR HEMOGLOBIN 31.6 pg (27.0-33.0); MEAN CORPUSCULAR HGB CONC 35.5 g/dl (32.0-36.5); MEAN CORPUSCULAR VOLUME 89.1 fl (80.0-96.0); PLATELET COUNT, AUTOMATED 194 10^3/uL (150-450); RED BLOOD COUNT 5.06 10^6/uL (4.30-6.10); WHITE BLOOD COUNT 5.1 10^3/uL (4.0-10.0)
[2020-03-07 09:43] LABS: BLOOD UREA NITROGEN 11 MG/DL (7-18); CALCIUM LEVEL 9.5 MG/DL (8.5-10.1); CARBON DIOXIDE LEVEL 29 MEQ/L (21-32); CHLORIDE LEVEL 104 MEQ/L (98-107); GLOMERULAR FILTRATION RATE > 60.0 (>56); GLUCOSE, FASTING 253 MG/DL (70-100); POTASSIUM SERUM 3.9 MEQ/L (3.5-5.1); SODIUM LEVEL 140 MEQ/L (136-145)
--- NOTE | 2020-03-07 13:02 | ROOPDOC ---
[facility] Report Of Operation Report of Operation DATE OF PROCEDURE: 03/07/20 PREPROCEDURE DIAGNOSES: Atherosclerosis of the [place] artery supplying still limiting claudication left lower extremity POSTPROCEDURE DIAGNOSES: Same PROCEDURE: 1. Ultrasound-guided access right common femoral artery 2. Aortoiliofemoral arteriogram 3. Selection left common femoral and SFA with lower extremity arteriogram and runoff 4. Cross chronic total occlusion left superficial femoral artery with selection of popliteal artery and runoff 5. Angioplasty left superficial femoral artery occlusion with 6 x 100 [place] balloon 6. Stent left superficial femoral artery with 7 x 100 Innova stent 7. Post-dilation left SFA stent with 6 x 100 [place] balloon, 6 x 48 conquest high-pressure balloon 8. Completion arteriograms 9. Mynx closure right common femoral artery SURGEON: Maida Hay MD ANESTHESIA: Local anesthesia 6 mL lidocaine. Moderate intravenous conscious sedation was supervised by Dr. Hay. The patient was independently monitored by registered nurse under the department of radiology using automated blood pressure, EKG, and pulse oximetry. The detailed sedation record is permanently stored in the hospital information system. The following is a brief sedation record: Start time 11:47, stop time 12:27, Versed 1 mg IV, fentanyl 50 g IV, heparin 3000 units IV. CONTRAST: 37 mL Isovue-300 INDICATION FOR PROCEDURE: This is a very pleasant 59-year-old gentleman with atherosclerosis in the [place] arteries and lifestyle limiting left lower extremity claudication. Risks benefits and alternatives to a left lower extremity arteriogram and potential intervention were explained to the patient he is agreeable to proceed. Informed consent was obtained. INTERPRETATION: 1. The patient's distal aorta, bilateral common iliac arteries, hypogastric arteries, external iliac arteries are widely patent with good flow into the common femoral arteries and profunda bilaterally. 2. The left lower extremity superficial femoral artery has excellent flow until the midportion where there is some heavy bulky plaque, just distal to this is a focal area of occlusion due to a large ball of calcified plaque, then some ectasia and plaque distal to this also compromises flow, but there is good collateral flow around this with excellent runoff through the popliteal artery and we see 3 vessel runoff to the foot. The main focus of diseases in the mid distal superficial femoral artery. 3. After crossing the chronic occlusion in the left superficial femoral artery popliteal flexion show that we were in the true lumen and there was no embolization. 4. After angioplasty of the left superficial femoral artery, there was still significant residual stenosis and bulky plaque and a dissection distal to the area of bulky as plaque, all flow limiting. 5. After stent placement in the mid distal left superficial femoral artery and posterior dilation with a 6 x 100 balloon, there was still a focal area of 70% stenosis in the proximal aspect of the stent from the bulky heavy calcified plaque. The rest of the stent was widely patent. 6. After high-pressure balloon post-dilation at the area of bulky as plaque 3, there is still 40% luminal compromise, but overall it is much improved. Unfortunately, that plaque is very dense and immovable. However, there is patent inflow through to the distal system and completion arteriograms reveals good rapid flow the tibials without embolization. No extravasation dissection noted. REPORT OF OPERATION: The patient was brought the angiographic suite in stable condition. His bilateral groins were prepped and draped in a sterile fashion. A timeout was performed. Sedation was administered without complication. Local anesthesia was administered to the skin and subcutaneous tissue over the right common femoral artery. A microneedle was used to access the artery under ultrasound guidance. A wire was passed through this access needle was removed. A 4 Afghan sheath was placed and flushed with saline. A Glidewire and flushing catheter were advanced into suprarenal aorta. Aortoiliofemoral arteriograms were performed, please see interpretation above. We went up and over the bifurcation with a Glidewire and a contra catheter and selective left superficial femoral artery and runoff was performed, please see interpretation above. We cancer Glidewire into the mid superficial femoral artery and exchange the sheath for 6 Afghan sheath, 45 cm destination. This was flushed with saline. We then utilized [place] catheter and a Glidewire to cross the occlusion in the left superficial femoral artery. This was a little bit challenging to and took a bit of time, but we were able to cross into the true lumen of the popliteal artery. A quick arteriogram confirmed we were in the true lumen and there was no embolization. Angioplasty with a 6 x 100 balloon for three-minute inflation, and following this there was still significant residual stenosis at the area of heavy as plaque as well as some dissection distal to this. 7 x 100 Innova stent was then deployed across the area and postdilated with a 6 x 100 balloon. Unfortunately, although the majority the stent was widely patent, they bulky area of plaque was still causing significant luminal compromise despite the stent. We then exchange the balloon for a high pressure 6 x 40 conquest balloon and after multiple inflations to 20 bonnie, we still had some luminal compromise 40%. Unfortunately, with the bulky nature of that plaque, this is the best we can improve flow and there is in-line flow through the SFA. We then exchange the sheath over the wire for short 6 Afghan sheath and flushed sheath with saline. A Mynx closure device was believed with good hemostasis. Pressure was held and sterile dressings were applied. The patient was then taken to recovery in stable condition. He tolerated the procedure and the sedation well. ESTIMATED BLOOD LOSS: Approximately 4 mL. COMPLICATIONS: none. PLAN: Okay to resume home diet and medications. Plavix has been prescribed due to stent placement. The patient can start Plavix in the morning. We will see him in a week to check his groin access site and his perfusion. We appreciate the opportunity to participate in the care of this patient. MAIDA HAY MD Mar 07, 2020 13:02
[2020-03-07 16:00] VITALS: BP 163/91
== END ==
LOC: M IRPRO 08:24
PROVIDERS: ATTEND Surgery Vascular Surgery
DX: I70.213 Atherosclerosis of native arteries of extremities with intermittent claudication, bilateral legs (principal); I70.92 Chronic total occlusion of artery of the extremities; E03.9 Hypothyroidism, unspecified; E11.9 Type 2 diabetes mellitus without complications; F32.9 Major depressive disorder, single episode, unspecified; F41.9 Anxiety disorder, unspecified; I10 Essential (primary) hypertension; I65.23 Occlusion and stenosis of bilateral carotid arteries; J42 Unspecified chronic bronchitis; J44.9 Chronic obstructive pulmonary disease, unspecified; Z79.899 Other long term (current) drug therapy; Z85.21 Personal history of malignant neoplasm of larynx; Z87.891 Personal history of nicotine dependence
CPT/HCPCS: 37226; 75630; 75774; 80048; 85027; 99152; 99153; C1725; C1760; C1769; C1876; C1887; C1894; J1644; J2250; J3010; Q9967

== ENCOUNTER → 2020-03-15 | Outpatient (CLI) | payer OTHER ==
[~2020-03-15] MED LIST changes: -ISOVUE-300 61% 50ML VIAL As Ordered ONE; -LIDOCAINE 1% MDV 20ML VIAL As Ordered ONE; -MIDAZOLAM INJ 2MG/2ML VIAL (J2250 PER 1MG) As Ordered ONE; -fentaNYL 100 MCG/2 ML INJECTION (J3010) As Ordered ONE
--- NOTE | 2020-03-15 15:01 | REP ---
INDICATION: R04.2, HEMOPTYSIS; CHEST PAIN; COUGH. COMPARISON: Comparison chest x-ray September 21, 2012. TECHNIQUE: Three views... FINDINGS: The lungs are well inflated and free of infiltrate. The pleural angles are sharp. The heart size is normal. Pulmonary vasculature is not increased. No significant bony abnormality is seen. There is degenerative spurring on the right side of the midthoracic spine unchanged. IMPRESSION: No active cardiopulmonary disease.. <Electronically signed by Rene Lorenzana > 03/15/20 [id number]
== END ==
LOC: M CLY 14:33
PROVIDERS: ATTEND Physician Assistant
DX: R04.2 Hemoptysis (principal)

== ENCOUNTER → 2020-03-15 | Outpatient (REF) | payer OTHER | LOC: M SFHCCLAY 15:34 | PROVIDERS: ATTEND Physician Assistant | DX: E11.65 Type 2 diabetes mellitus with hyperglycemia (principal) ==

== ENCOUNTER → 2020-03-16 | Outpatient (CLI) | payer OTHER ==
[~2020-03-16] MED LIST changes: +ISOVUE-370 76% 100ML VIAL As Ordered ONE
--- NOTE | 2020-03-18 05:45 | REP ---
INDICATION: HEMOTHYSIS, CHEST PAIN, WHEEZING, HX OF COPD COMPARISON: 08/09/2018 TECHNIQUE: Axial contrast enhanced images from the thoracic inlet to the upper abdomen with coronal and sagittal reformations using 75 ml Isovue 370 intravenous contrast material. [address] CT examination was performed using the following dose reduction techniques: Automated exposure control, adjustment of mA and/or kv according to the patient's size, and use of iterative reconstruction technique. FINDINGS: Bilateral lung irvin are clear. No consolidation, significant nodule or mass lesion appreciated. No pleural effusion. No pneumothorax. Tracheobronchial tree is patent. No axillary, hilar, or mediastinal adenopathy. Mediastinum demonstrates atherosclerotic changes to the thoracic aorta and coronary arteries without aortic aneurysm or cardiomegaly. No pericardial effusion. Tracheostomy suggested. Musculoskeletal structures are intact and without acute osseous abnormality. Limited upper abdomen demonstrates normal bilateral adrenal glands. IMPRESSION: 1. No acute mediastinal or pleuroparenchymal process appreciated. <Electronically signed by Narayan Yanes > 03/18/20 0533
== END ==
LOC: M RAD 15:01
PROVIDERS: ATTEND Physician Assistant
DX: R04.2 Hemoptysis (principal)
CPT/HCPCS: 71260; Q9967

== ENCOUNTER → 2020-04-12 | Outpatient (CLI) | payer OTHER ==
[~2020-04-12] MED LIST changes: -ISOVUE-370 76% 100ML VIAL As Ordered ONE
--- NOTE | 2020-04-12 12:01 | REP ---
INDICATION: CLAUDICATION COMPARISON: 01/18/2020 TECHNIQUE: Real time ahn scale and color Doppler evaluation of the bilateral lower extremity arterial vasculature using linear high frequency transducer. FINDINGS: Ahn scale and color images demonstrate significant amounts of bilateral calcified atheromatous plaquing. Primarily triphasic and biphasic arterial wave patterns are noted. Right lower extremity demonstrates 5:1 stenosis at the distal superficial femoral artery. Further areas of luminal narrowing noted without significant stenosis. Left lower extremity demonstrates patent distal superficial femoral arterial stent with 2.3:1 stenosis noted at the distal aspect. Further scattered areas of luminal narrowing noted without significant stenosis. Right AL: 0.88 Left AL: 0.88 Peak systolic velocities (cm/sec) Common femoral artery: Right 168; Left 161 Profunda femoris: Right 144; Left 115/180 SFA (proximal): Right 123; Left 172 SFA (mid): Right 90; Left 121 SFA (distal): Right 72/363; Left 90/210 Popliteal artery: Right 69; Left 102 VAL (prox.): Right 53; Left 77 Tibioperoneal trunk: Right 48; Left 91 PBX WIRE CHIEF (prox.): Right 48; Left 83 PBX WIRE CHIEF (distal): Right 36; Left 73 VAL (distal): Right 56; Left 75 IMPRESSION: Marked bilateral calcified atheromatous plaquing with areas of stenosis as described above. <Electronically signed by Narayan Yanes > 04/12/20 [id number]
== END ==
LOC: M RAD 10:05
PROVIDERS: ATTEND Physician Assistant
DX: I70.213 Atherosclerosis of native arteries of extremities with intermittent claudication, bilateral legs (principal)

== ENCOUNTER 2020-05-02 14:31 | Outpatient (RCR) | payer OTHER | END 2020-05-09 | LOC: M ST 14:31 | PROVIDERS: ATTEND Otolaryngology | DX: R13.13 Dysphagia, pharyngeal phase (principal) ==

== ENCOUNTER 2020-06-14 08:33 | Outpatient (RCR) | payer OTHER ==
[~2020-06-14 08:33] MED LIST changes: +BUPR150T12 PO; +BUPR300T92 PO; +GABA-283 PO; -GABA-845 PO; +MAGN400C2 PO; +SYNT150T PO
[2020-06-27] MEDS ORDERED: BROV15NE NEB (16:44)
== END 2020-07-09 ==
LOC: M ST 08:33
PROVIDERS: ATTEND Otolaryngology
DX: Z51.89 Encounter for other specified aftercare (principal); Z90.02 Acquired absence of larynx

== ENCOUNTER → 2020-06-16 | Outpatient (CLI) | payer OTHER ==
[~2020-06-16] MED LIST changes: -GABA-283 PO; +GABA-845 PO
== END ==
LOC: M LABSMTC 09:53
PROVIDERS: ATTEND Anesthesiology
DX: Z20.828 Contact with and (suspected) exposure to other viral communicable diseases (principal); Z11.59 Encounter for screening for other viral diseases

== ENCOUNTER 2020-06-21 08:02 | Day surgery (SDC) | payer OTHER ==
[~2020-06-21] VITALS: Ht 190.5 cm; Wt 116.6 kg
[~2020-06-21 08:02] MED LIST changes: +GABA-283 PO; -GABA-845 PO
[2020-06-21] MEDS ORDERED: NS 1,000 ML IV ONE (08:50)
[2020-06-21] MEDS ORDERED: fentaNYL 100 MCG/2 ML INJECTION (J3010) As Ordered ONE (09:05)
[2020-06-21] MEDS ORDERED: propofoL 200 MG/20 ML VIAL As Ordered ONE (09:05)
--- NOTE | 2020-06-21 09:35 | ROOR ---
Patient Name: Christos Gracia Procedure Date: 06/21/2020 9:16 AM Date of : 1960 Age: 60 Room: [facility] Gender: Male Note Status: Finalized Procedure: Upper GI endoscopy Indications: Oropharyngeal phase dysphagia Providers: Huy Ponce MD Referring MD: Kira Cabezas NP Requesting Provider: Medicines: Monitored Anesthesia Care Complications: No immediate complications. Procedure: Pre-Anesthesia Assessment: - The heart rate, respiratory rate, oxygen saturations, blood pressure, adequacy of pulmonary ventilation, and response to care were monitored throughout the procedure. The Endoscope was introduced through the mouth, and advanced to the second part of duodenum. The upper GI endoscopy was accomplished without difficulty. The patient tolerated the procedure well. Findings: The very proximal esophagus is somewhat tortuous/deformed, but no significant stenosis is seen. Scope passes without resistance The exam of the esophagus was otherwise normal. Small Hiatal Hernia. The entire examined stomach was normal. The examined duodenum was normal. Impression: - Mild tortuosity/deformity of very proximal esophagus, but no obstruction or restriction. - Inner cuff of prosthesis is seen in upper esophagus, this appears normal - Small Hiatal Hernia. - Normal stomach. - Normal examined duodenum. - No specimens collected. Recommendation: - Observe patient's clinical course. - Return to referring physician as previously scheduled. - Resume Plavix (clopidogrel) at prior dose today. Procedure Code(s): --- Professional --- 34309, Esophagogastroduodenoscopy, flexible, transoral; diagnostic, including collection of specimen(s) by brushing or washing, when performed (separate procedure) Diagnosis Code(s): --- Professional --- R13.12, Dysphagia, oropharyngeal phase Q39.9, Congenital malformation of esophagus, unspecified CPT copyright 2019 [employer]. All rights reserved. The codes documented in this report are preliminary and upon sales mgr review may be revised to meet current compliance requirements. Huy Ponce MD Huy Ponce MD 06/21/2020 9:35:10 AM Electronically signed by Huy Ponce MD Number of Addenda: 0 Note Initiated On: 06/21/2020 9:16 AM Estimated Blood Loss: Estimated blood loss: none.
[2020-06-21 09:55] VITALS: BP 185/88
== END 2020-06-21 10:01 | disposition home or self-care (01) ==
LOC: M OPP 08:02
PROVIDERS: ATTEND Internal Medicine Gastroenterology
DX: Q39.9 Congenital malformation of esophagus, unspecified (principal); K44.9 Diaphragmatic hernia without obstruction or gangrene; R13.12 Dysphagia, oropharyngeal phase; I10 Essential (primary) hypertension; E11.9 Type 2 diabetes mellitus without complications; J44.9 Chronic obstructive pulmonary disease, unspecified; K74.69 Other cirrhosis of liver; Z79.899 Other long term (current) drug therapy; Z87.891 Personal history of nicotine dependence
CPT/HCPCS: 43235; J3010

== ENCOUNTER 2020-06-27 16:36 | Emergency (ER) | payer OTHER ==
[~2020-06-27] VITALS: Ht 190.5 cm; Wt 116.8 kg
[2020-06-27] MEDS ORDERED: BROV15NE NEB (16:44)
--- NOTE | 2020-06-27 17:07 | REP ---
INDICATION: fall/hallucinations/r/o bleed. COMPARISON: 03/19/2012 TECHNIQUE: 4.5 mm contiguous transaxial sections were obtained from the skull base to the cerebral convexities with thin cuts through the posterior fossa without the administration of intravenous contrast. FINDINGS: The ventricles and sulci are consistent with the patient's age. There are no extra-axial fluid collections. There is no mass effect. The deep cerebral white matter is consistent with the patient's age. The orbital and petrous structures, cerebellopontine angles, and posterior fossa are unremarkable. The sella turcica, cavernous, and paracavernous structures are essentially unremarkable. The visualized portions of the paranasal sinuses and mastoid air cells are clear. Images of the skull base show no gross abnormality. IMPRESSION: Essentially unremarkable CT examination of the brain. There has been no significant change compared to the prior exam. <Electronically signed by Ayaan Hamilton > 06/27/20 [id number]
[2020-06-27] MEDS: LABETALOL 100MG/20ML VIAL IV PRN ×2 (18:20→19:07)
[2020-06-27 18:30] LABS: BASO # 0.1 10^3/uL (0.0-0.2); BASO % 0.9 % (0.0-1.0); EOS # 0.1 10^3/uL (0.0-0.5); EOS % 2.4 % (0.0-3.0); HEMATOCRIT 44.9 % (42.0-52.0); HEMOGLOBIN 16.1 g/dl (13.5-17.5); LYMPH # 0.9 10^3/uL (1.5-5.0); LYMPH % 14.9 % (24.0-44.0); MEAN CORPUSCULAR HEMOGLOBIN 31.8 pg (27.0-33.0); MEAN CORPUSCULAR HGB CONC 35.9 g/dl (32.0-36.5); MEAN CORPUSCULAR VOLUME 88.7 fl (80.0-96.0); MONO # 0.6 10^3/uL (0.0-0.8); NEUTROPHILS # 4.1 10^3/uL (1.5-8.5); NEUTROPHILS % 71.3 % (36.0-66.0); PLATELET COUNT, AUTOMATED 178 10^3/uL (150-450); RED BLOOD COUNT 5.06 10^6/uL (4.30-6.10); WHITE BLOOD COUNT 5.8 10^3/uL (4.0-10.0)
--- NOTE | 2020-06-27 18:32 | REP ---
INDICATION: hypertension. COMPARISON: 03/15/2020. TECHNIQUE: Single portable AP view of the chest was performed. FINDINGS: There is no acute infiltrate or pulmonary edema. Lungs are clear. The heart is not significantly enlarged. The mediastinal silhouette is unremarkable. The visualized osseous structures are intact. IMPRESSION: No acute pulmonary disease. <Electronically signed by Colby Ahn > 06/27/20 0672
[2020-06-27 18:59] LABS: ALBUMIN 3.8 GM/DL (3.2-5.2); ALT/SGPT 28 U/L (12-78); BILIRUBIN,DIRECT 0.3 MG/DL (0.0-0.2); BILIRUBIN,TOTAL 0.9 MG/DL (0.2-1.0); BLOOD UREA NITROGEN 9 MG/DL (7-18); CALCIUM LEVEL 8.8 MG/DL (8.8-10.2); CARBON DIOXIDE LEVEL 27 MEQ/L (21-32); CHLORIDE LEVEL 110 MEQ/L (98-107); CK-MB VALUE MASS 3.7 NG/ML (<3.6); CPK CREATINE PHOSPHOKINASE 184 U/L (39-308); CREATININE FOR GFR 0.89 MG/DL (0.70-1.30); ERYTHROCYTE SEDIMENTATION RATE 3 mm/hr (0-20); FREE T4 1.13 NG/DL (0.76-1.46); GLOMERULAR FILTRATION RATE > 60.0 (>49); GLUCOSE, FASTING 209 MG/DL (70-100); LIPASE 181 U/L (73-393); MB/CK RELATIVE INDEX 2.01 (< OR =4); NT-PRO BNP 34 PG/ML (<125); POTASSIUM SERUM 4.2 MEQ/L (3.5-5.1); SODIUM LEVEL 141 MEQ/L (136-145); THYROID STIMULATING HORMONE 0.115 uIU/ML (0.358-3.740); TOTAL PROTEIN 6.8 GM/DL (6.4-8.2); TROPONIN I < 0.02 NG/ML (< 0.10)
[2020-06-27] MEDS ORDERED: LABETALOL 100MG TAB PO ONE (20:05)
[2020-06-27 20:30] VITALS: BP 146/88
--- NOTE | 2020-06-27 20:36 | ECGEPIP ---
[facility] - ED Test Date: 2020-06-27 Pat Name: ANA MANDEL Department: Room: - Gender: Male E Learning Designer: LILIANEJOSE : 1960 Requested By: AMY Rajput Order Number: [id number] Reading MD: John Bojorquez Measurements Intervals [place] Rate: 91 P: 69 [place]: 172 QRS: 48 QRSD: 78 T: 59 QT: 350 QTc: 430 Interpretive Statements Sinus rhythm with occasional premature ventricular complexes POOR R WAVE PROGRESSION NO PRIORS FOR COMPARISON Electronically Signed on 06-27-2020 20:36:05 EDT by John Bojorquez
[2020-06-27 21:30] VITALS: BP 146/87
== END 2020-06-27 21:43 | disposition home or self-care (01) ==
LOC: M ED 16:36
DX: I16.0 Hypertensive urgency (principal); E11.9 Type 2 diabetes mellitus without complications; I10 Essential (primary) hypertension; J44.9 Chronic obstructive pulmonary disease, unspecified; F33.9 Major depressive disorder, recurrent, unspecified; E03.9 Hypothyroidism, unspecified; F17.200 Nicotine dependence, unspecified, uncomplicated; Z79.899 Other long term (current) drug therapy

== ENCOUNTER → 2020-07-11 | Outpatient (CLI) | payer OTHER ==
[~2020-07-11] MED LIST changes: +BROV15NE NEB; +E-Z-GAS II EFFERVESCENT PACKET (SODIUM BICARB./CITRIC ACID/SIMETHICONE) As Ordered ONE; +E-Z-HD 98% w/w 340GM SUSP BTL As Ordered ONE; +E-Z-PAQUE 96% w/w SUSP 176GM BTL As Ordered ONE
--- NOTE | 2020-07-11 15:26 | REP ---
INDICATION: DYSPHAGIA. COMPARISON: Esophagram dated 12/21/2019 TECHNIQUE: This procedure was performed by [facility], under the direct supervision of Dr. Ahn. Images were reviewed with Dr. Ahn prior to dictation. Liquid barium and gas producing crystals were given in the erect position, as well as liquid barium in the prone oblique position in order to perform a double contrast esophagram examination. FINDINGS: A single view PA chest x-ray is submitted as a improvement director film. The superior mediastinal structures are midline. The heart size is within normal limits. The lungs are clear. The oral and pharyngeal stages of deglutition demonstrated aspiration. Esophageal transport is prompt and efficient and there is no evidence of esophagitis, stricture, or mucosal ring. However tertiary contractions were visualized during the exam. There is evidence of a small hiatal hernia. Gastroesophageal reflux was visualized to the level of the thoracic inlet. IMPRESSION: 1. Aspiration. 2. Tertiary contractions. 3. Gastroesophageal reflux to the level of the thoracic inlet. 4. Small hiatal hernia. 0.3 minutes of fluoroscopy time was utilized for this procedure. Some fluoroscopic images are performed with last image hold technology. These images require no additional radiation. <Electronically signed by Shey [facility] > 07/11/20 [id number] <Electronically signed by Colby Ahn > 07/11/20 1522
== END ==
LOC: M RAD 08:24
PROVIDERS: ATTEND Internal Medicine Gastroenterology
DX: R13.10 Dysphagia, unspecified (principal); K21.9 Gastro-esophageal reflux disease without esophagitis; K44.9 Diaphragmatic hernia without obstruction or gangrene

== ENCOUNTER → 2020-07-31 | Outpatient (CLI) | payer OTHER ==
[~2020-07-31] MED LIST changes: -E-Z-GAS II EFFERVESCENT PACKET (SODIUM BICARB./CITRIC ACID/SIMETHICONE) As Ordered ONE; -E-Z-HD 98% w/w 340GM SUSP BTL As Ordered ONE; -E-Z-PAQUE 96% w/w SUSP 176GM BTL As Ordered ONE
[2020-07-31 10:57] LABS: BLOOD UREA NITROGEN 11 MG/DL (7-18); CARBON DIOXIDE LEVEL 28 MEQ/L (21-32); CHLORIDE LEVEL 109 MEQ/L (98-107); GLOMERULAR FILTRATION RATE > 60.0 (>49); GLUCOSE, FASTING 189 MG/DL (70-100); SODIUM LEVEL 142 MEQ/L (136-145)
== END ==
LOC: M LAB 09:48
PROVIDERS: ATTEND Nurse Practitioner Family
DX: I16.0 Hypertensive urgency (principal)

== ENCOUNTER → 2020-08-02 | Outpatient (CLI) | payer OTHER ==
--- NOTE | 2020-08-02 14:44 | REPVR ---
PROCEDURE INFORMATION: Exam: MR Head Without and With Contrast Exam date and time: 08/02/2020 11:15 AM Age: 60 years old Clinical indication: Pain; Headache not specified; Patient HX: HX throat cancer 9 years ago; Additional info: New daily persistent headache, hypertensive urgency TECHNIQUE: Imaging protocol: MR of the head without and with intravenous contrast. Contrast material: PROHANCE; Contrast volume: 20 ml; Contrast route: INTRAVENOUS (IV); COMPARISON: 1. CT Head without contrast 06/27/2020 4:[address] Neck with contrast 12/15/2019 12:55 PM FINDINGS: Brain: No restricted diffusion is seen to suggest acute infarction. There is no acute intracranial hemorrhage, cerebral edema, or midline shift. Age-related cerebral and cerebellar substance loss is present. Mild scattered increased T2 and FLAIR signal within the periventricular and subcortical white matter is present. This is nonspecific but likely related to chronic microangiopathic ischemic change. No enhancing lesions were identified after the administration of contrast. Cerebral ventricles: Mild ex vacuo dilation of the lateral ventricles is noted. Bones/joints: Unremarkable. Paranasal sinuses: Normal as visualized. No acute sinusitis. Mastoid air cells: Normal as visualized. No mastoid effusion. Orbital cavity: The patient is likely status post left cataract surgery. Soft tissues: A small incidental right frontal scalp lipoma is present. IMPRESSION: 1. No acute intracranial abnormality. 2. Chronic findings as discussed above. Electronically signed by: Vini Saavedra On 08/02/2020 14:43:50 PM
== END ==
LOC: M PLARAD 10:14
PROVIDERS: ATTEND Nurse Practitioner Family
DX: I16.0 Hypertensive urgency (principal); G44.52 New daily persistent headache (NDPH)

== ENCOUNTER 2020-08-24 08:30 | Outpatient (RCR) | payer OTHER ==
[~2020-08-24 08:30] MED LIST changes: +LOSA100T45 PO; -LOSA100T50 PO; +OMEP-173; -OMEP-218
== END 2020-09-08 ==
LOC: M ST 08:30
PROVIDERS: ATTEND Otolaryngology
DX: Z96.3 Presence of artificial larynx (principal)

== ENCOUNTER → 2020-11-08 | Outpatient (RCR) | payer OTHER ==
[~2020-11-08] MED LIST changes: -LOSA100T45 PO; +LOSA100T50 PO; -OMEP-173; +OMEP-218
== END ==
LOC: M ST 11:00
PROVIDERS: ATTEND Otolaryngology
DX: Z96.3 Presence of artificial larynx (principal)

== ENCOUNTER → 2020-11-15 | Outpatient (REF) | payer OTHER ==
[2020-11-16 12:22] LABS: BASO # 0.1 10^3/uL (0.0-0.2); BASO % 0.9 % (0.0-1.0); EOS # 0.2 10^3/uL (0.0-0.5); EOS % 3.1 % (0.0-3.0); HEMATOCRIT 48.7 % (42.0-52.0); LYMPH # 1.2 10^3/uL (1.5-5.0); LYMPH % 17.1 % (24.0-44.0); MEAN CORPUSCULAR HEMOGLOBIN 32.1 pg (27.0-33.0); MEAN CORPUSCULAR HGB CONC 34.9 g/dl (32.0-36.5); MEAN CORPUSCULAR VOLUME 92.1 fl (80.0-96.0); MONO # 0.7 10^3/uL (0.0-0.8); MONO % 9.9 % (2.0-8.0); NEUTROPHILS # 4.7 10^3/uL (1.5-8.5); NEUTROPHILS % 68.6 % (36.0-66.0); PLATELET COUNT, AUTOMATED 230 10^3/uL (150-450); RED BLOOD COUNT 5.29 10^6/uL (4.30-6.10); WHITE BLOOD COUNT 6.8 10^3/uL (4.0-10.0)
[2020-11-16 14:17] LABS: ALBUMIN 4.2 GM/DL (3.2-5.2); ALT/SGPT 38 U/L (12-78); BILIRUBIN,TOTAL 1.4 MG/DL (0.2-1.0); BLOOD UREA NITROGEN 9 MG/DL (7-18); CALCIUM LEVEL 9.8 MG/DL (8.8-10.2); CARBON DIOXIDE LEVEL 30 MEQ/L (21-32); CHLORIDE LEVEL 106 MEQ/L (98-107); CHOLESTEROL LEVEL 177 MG/DL (<200); CHOLESTEROL RISK RATIO 3.218 (<5); CREATININE FOR GFR 1.05 MG/DL (0.70-1.30); FREE T4 1.27 NG/DL (0.76-1.46); GLOMERULAR FILTRATION RATE > 60.0 (>49); GLUCOSE, FASTING 223 MG/DL (70-100); HDL CHOLESTEROL 55 MG/DL (>40); LDL CHOLESTEROL 94 MG/DL (<100); NON-HDL-C 122 MG/DL; POTASSIUM SERUM 4.5 MEQ/L (3.5-5.1); SODIUM LEVEL 139 MEQ/L (136-145); THYROID STIMULATING HORMONE 0.983 uIU/ML (0.358-3.740); TOTAL PROTEIN 7.3 GM/DL (6.4-8.2); TRIGLYCERIDES LEVEL 140 MG/DL (<150)
[2020-11-16 16:30] LABS: HEMOGLOBIN A1c 6.6 %
== END ==
LOC: M SFHCCLAY 14:00
PROVIDERS: ATTEND Nurse Practitioner Family
DX: I16.0 Hypertensive urgency (principal); I73.9 Peripheral vascular disease, unspecified; R21 Rash and other nonspecific skin eruption; M54.2 Cervicalgia; G44.52 New daily persistent headache (NDPH); R44.1 Visual hallucinations

== ENCOUNTER 2021-01-31 08:28 | Outpatient (RCR) | payer OTHER | END 2021-02-08 | LOC: M ST 08:28 | PROVIDERS: ATTEND Otolaryngology | DX: Z96.3 Presence of artificial larynx (principal) ==

== ENCOUNTER → 2021-03-21 | Outpatient (CLI) | payer OTHER ==
[~2021-03-21] MED LIST changes: +LOSA100T45 PO; -LOSA100T50 PO; +OMEP-173; -OMEP-218
== END ==
LOC: M RAD 11:14
PROVIDERS: ATTEND Surgery
DX: I73.9 Peripheral vascular disease, unspecified (principal)

== ENCOUNTER → 2021-03-25 | Outpatient (REF) | payer OTHER ==
[2021-03-25 15:48] LABS: BASO % 0.5 % (0.0-1.0); EOS # 0.3 10^3/uL (0.0-0.5); EOS % 3.2 % (0.0-3.0); HEMATOCRIT 47.6 % (42.0-52.0); LYMPH # 1.4 10^3/uL (1.5-5.0); LYMPH % 16.1 % (24.0-44.0); MEAN CORPUSCULAR HEMOGLOBIN 32.3 pg (27.0-33.0); MEAN CORPUSCULAR HGB CONC 35.7 g/dl (32.0-36.5); MEAN CORPUSCULAR VOLUME 90.3 fl (80.0-96.0); MONO # 0.8 10^3/uL (0.0-0.8); MONO % 9.5 % (2.0-8.0); NEUTROPHILS # 6.2 10^3/uL (1.5-8.5); NEUTROPHILS % 70.4 % (36.0-66.0); PLATELET COUNT, AUTOMATED 209 10^3/uL (150-450); RED BLOOD COUNT 5.27 10^6/uL (4.30-6.10); WHITE BLOOD COUNT 8.8 10^3/uL (4.0-10.0)
[2021-03-25 16:15] LABS: ALBUMIN 4.4 GM/DL (3.2-5.2); ALT/SGPT 40 U/L (12-78); BILIRUBIN,TOTAL 1.4 MG/DL (0.2-1.0); BLOOD UREA NITROGEN 9 MG/DL (7-18); CALCIUM LEVEL 9.5 MG/DL (8.8-10.2); CARBON DIOXIDE LEVEL 27 MEQ/L (21-32); CHLORIDE LEVEL 108 MEQ/L (98-107); CHOLESTEROL LEVEL 183 MG/DL (<200); CREATININE FOR GFR 0.97 MG/DL (0.70-1.30); FREE T4 1.36 NG/DL (0.76-1.46); GLOMERULAR FILTRATION RATE > 60.0 (>49); GLUCOSE, FASTING 193 MG/DL (70-100); HDL CHOLESTEROL 50 MG/DL (>40); HEMOGLOBIN A1c 6.6 %; LDL CHOLESTEROL 109 MG/DL (<100); NON-HDL-C 133 MG/DL; SODIUM LEVEL 142 MEQ/L (136-145); THYROID STIMULATING HORMONE 0.238 uIU/ML (0.358-3.740); TOTAL PROTEIN 7.5 GM/DL (6.4-8.2); TRIGLYCERIDES LEVEL 118 MG/DL (<150)
== END ==
LOC: M SFHCCLAY 11:33
PROVIDERS: ATTEND Nurse Practitioner Family
DX: I10 Essential (primary) hypertension (principal); I16.0 Hypertensive urgency; I73.9 Peripheral vascular disease, unspecified; R21 Rash and other nonspecific skin eruption; M54.2 Cervicalgia; J44.9 Chronic obstructive pulmonary disease, unspecified; E03.9 Hypothyroidism, unspecified; L71.9 Rosacea, unspecified

== ENCOUNTER → 2021-04-03 | Outpatient (CLI) | payer OTHER ==
[~2021-04-03] MED LIST changes: +GASTROGRAFIN SOLUTION 30ML (Q9963) ONE; +ISOVUE-370 76% 100ML VIAL ONE
== END ==
LOC: M PLAIMG 08:36
PROVIDERS: ATTEND Nurse Practitioner Family
DX: R16.0 Hepatomegaly, not elsewhere classified (principal); R10.84 Generalized abdominal pain

== ENCOUNTER 2021-05-14 10:30 | Outpatient (RCR) | payer OTHER ==
[~2021-05-14 10:30] MED LIST changes: -GASTROGRAFIN SOLUTION 30ML (Q9963) ONE; -ISOVUE-370 76% 100ML VIAL ONE
== END 2021-06-08 ==
LOC: M ST 10:30
PROVIDERS: ATTEND Otolaryngology
DX: Z96.3 Presence of artificial larynx (principal); Z90.02 Acquired absence of larynx

== ENCOUNTER → 2021-05-31 | Outpatient (CLI) | payer OTHER ==
[2021-05-31 08:47] LABS: INR 1.08; PROTHROMBIN TIME 14.4 SECONDS (12.7-14.5)
[2021-05-31 08:49] LABS: PARTIAL THROMBOPLASTIN TIME 58.7 SECONDS (25.9-37.0)
[2021-05-31 09:33] LABS: ALBUMIN 3.8 GM/DL (3.2-5.2); ALT/SGPT 30 U/L (12-78); BILIRUBIN,DIRECT 0.4 MG/DL (0.0-0.2); BILIRUBIN,TOTAL 1.2 MG/DL (0.2-1.0); FERRITIN 531 NG/ML (26-388); IRON (FE) 60 UG/DL (65-175); THYROID STIMULATING HORMONE 0.165 uIU/ML (0.358-3.740); TOTAL IRON BINDING CAPACITY 214 UG/DL (250-450); TOTAL PROTEIN 6.5 GM/DL (6.4-8.2)
[2021-05-31 09:34] LABS: HEPATITIS B SURFACE ANTIBODY NEGATIVE (POSITIVE)
[2021-05-31 09:45] LABS: HEPATITIS B SURFACE ANTIGEN NEGATIVE (NEGATIVE)
[2021-05-31 10:13] LABS: HEPATITIS C VIRUS ABY INDEX 0.1 INDEX (<0.8)
[2021-06-04 03:07] LABS: ALPHA 1 ANTITRYPSIN 133 mg/dL (101-187); ANTI-MITOCHONDRIAL ANTIBODY <20.0 Units (0.0-20.0); ANTINUCLEAR ANTIBODIES DIRECT Negative (Negative); HEPATITIS A IgG TOTAL Negative (Negative); LIVER-KIDNEY MICROSOMAL ABY <20.1 Units (0.0-20.0); TISSUE TRANSGLUTAMINASE IgA <2 U/mL (0-3); TISSUE TRANSGLUTAMINASE IgG <2 U/mL (0-5)
[2021-06-04 12:53] LABS: ALBUMIN 4.04 GM/DL (3.29-5.55); ALBUMIN % 62.2 % (55.8-66.1); ALPHA-1-GLOBULIN % 3.8 % (2.9-4.9); ALPHA-1-GLOBULINS 0.25 GM/DL (0.17-0.41); ALPHA-2-GLOBULINS % 9.3 % (7.1-11.8); BETA-1-GLOBULINS 0.33 GM/DL (0.28-0.60); BETA-1-GLOBULINS % 5.1 % (4.7-7.2); BETA-2-GLOBULINS 0.35 GM/DL (0.19-0.55); BETA-2-GLOBULINS % 5.4 % (3.2-6.5); GAMMA GLOBULIN % 14.2 % (11.1-18.8); GAMMA GLOBULINS 0.92 GM/DL (0.65-1.58)
== END ==
LOC: M LAB 07:30
PROVIDERS: ATTEND Physician Assistant
DX: K74.60 Unspecified cirrhosis of liver (principal)

== ENCOUNTER 2021-08-22 09:00 | Outpatient (RCR) | payer OTHER ==
[~2021-08-22 09:00] MED LIST changes: +ALBU2.5V10 INH; -ALBU83IN INH
== END 2021-09-08 ==
LOC: M ST 09:00
PROVIDERS: ATTEND Otolaryngology
DX: Z90.02 Acquired absence of larynx (principal)

== ENCOUNTER → 2021-08-28 | Outpatient (CLI) | payer OTHER | LOC: M RAD 14:31 | PROVIDERS: ATTEND Internal Medicine Pulmonary Disease | DX: R91.1 Solitary pulmonary nodule (principal); Z87.891 Personal history of nicotine dependence ==

== ENCOUNTER → 2021-09-17 | Outpatient (CLI) | payer OTHER ==
[2021-09-17 17:45] LABS: ALBUMIN 3.6 GM/DL (3.2-5.2); ALT/SGPT 30 U/L (12-78); BILIRUBIN,TOTAL 1.2 MG/DL (0.2-1.0); BLOOD UREA NITROGEN 6 MG/DL (7-18); CARBON DIOXIDE LEVEL 30 MEQ/L (21-32); CHLORIDE LEVEL 108 MEQ/L (98-107); CREATININE FOR GFR 0.93 MG/DL (0.70-1.30); GLOMERULAR FILTRATION RATE > 60.0 (>49); GLUCOSE, FASTING 130 MG/DL (70-100); SODIUM LEVEL 142 MEQ/L (136-145); TOTAL PROTEIN 6.7 GM/DL (6.4-8.2)
== END ==
LOC: M RAD 14:52
PROVIDERS: ATTEND Surgery
DX: I73.9 Peripheral vascular disease, unspecified (principal); I65.23 Occlusion and stenosis of bilateral carotid arteries

== ENCOUNTER → 2021-10-21 | Outpatient (CLI) | payer OTHER ==
[~2021-10-21] MED LIST changes: +BARIUM SULFATE 700 MG TABLET (E-Z-DISK) As Ordered ONE; +E-Z-PAQUE 96% w/w SUSP 176GM BTL As Ordered ONE; +VARIBAR NECTAR 40% w/v 240ML SUSP BTL As Ordered ONE; +VARIBAR PUDDING 40% w/v 230ML TUBE As Ordered ONE
== END ==
LOC: M RAD 10:33
PROVIDERS: ATTEND Nurse Practitioner Family
DX: R13.14 Dysphagia, pharyngoesophageal phase (principal)

== ENCOUNTER → 2022-01-20 | Outpatient (CLI) | payer OTHER ==
[~2022-01-20] MED LIST changes: -BARIUM SULFATE 700 MG TABLET (E-Z-DISK) As Ordered ONE; -E-Z-PAQUE 96% w/w SUSP 176GM BTL As Ordered ONE; -VARIBAR NECTAR 40% w/v 240ML SUSP BTL As Ordered ONE; -VARIBAR PUDDING 40% w/v 230ML TUBE As Ordered ONE
== END ==
LOC: M RAD 07:49
PROVIDERS: ATTEND Surgery
DX: I65.23 Occlusion and stenosis of bilateral carotid arteries (principal)

== ENCOUNTER 2022-03-11 14:22 | Emergency (ER) | payer OTHER ==
[~2022-03-11] VITALS: Ht 190.5 cm; Wt 54.5 kg
[2022-03-11 16:01] LABS: BASO % 0.5 % (0.0-1.0); EOS # 0.1 10^3/uL (0.0-0.5); EOS % 1.3 % (0.0-3.0); HEMATOCRIT 45.7 % (42.0-52.0); HEMOGLOBIN 16.1 g/dl (13.5-17.5); LYMPH # 0.8 10^3/uL (1.5-5.0); LYMPH % 8.6 % (24.0-44.0); MEAN CORPUSCULAR HEMOGLOBIN 32.3 pg (27.0-33.0); MEAN CORPUSCULAR HGB CONC 35.2 g/dl (32.0-36.5); MEAN CORPUSCULAR VOLUME 91.8 fl (80.0-96.0); MONO # 0.6 10^3/uL (0.0-0.8); MONO % 7.2 % (2.0-8.0); NEUTROPHILS # 7.1 10^3/uL (1.5-8.5); NEUTROPHILS % 81.9 % (36.0-66.0); PLATELET COUNT, AUTOMATED 175 10^3/uL (150-450); RED BLOOD COUNT 4.98 10^6/uL (4.30-6.10); WHITE BLOOD COUNT 8.7 10^3/uL (4.0-10.0)
[2022-03-11 16:11] LABS: INR 1.17; PROTHROMBIN TIME 15.1 SECONDS (12.5-14.5)
[2022-03-11 16:31] LABS: BLOOD UREA NITROGEN 8 MG/DL (9-23); CALCIUM LEVEL 8.9 MG/DL (8.3-10.6); CARBON DIOXIDE LEVEL 27 MMOL/L (20-31); CHLORIDE LEVEL 106 MMOL/L (98-107); CREATININE FOR GFR 0.81 MG/DL (0.70-1.30); GLOMERULAR FILTRATION RATE > 60.0 (>49); GLUCOSE, FASTING 259 MG/DL (74-106); POTASSIUM SERUM 4.2 MMOL/L (3.5-5.1); SODIUM LEVEL 142 MMOL/L (136-145)
[2022-03-11 19:30] LABS: MAGNESIUM LEVEL 1.8 MG/DL (1.8-2.4)
[2022-03-11 22:08] VITALS: BP 132/67
[2022-03-11 22:26] LABS: CK-MB VALUE MASS 1.6 NG/ML (<3.6)
[2022-03-11 22:28] LABS: CPK CREATINE PHOSPHOKINASE 108 U/L (46-171); MB/CK RELATIVE INDEX 1.48 (< OR =4)
[2022-03-12] MEDS ORDERED: NAPR-837 PO (21:51)
[2022-03-12] MEDS ORDERED: CYCL-707 PO (21:51)
== END 2022-03-11 21:30 | disposition left against medical advice (07) ==
LOC: EDBD 14:22 → M ED 15:24
DX: M54.50 Low back pain, unspecified (principal); W00.0XXA Fall on same level due to ice and snow, initial encounter; E11.9 Type 2 diabetes mellitus without complications; I10 Essential (primary) hypertension; E03.9 Hypothyroidism, unspecified; K21.9 Gastro-esophageal reflux disease without esophagitis; J44.9 Chronic obstructive pulmonary disease, unspecified; Z87.891 Personal history of nicotine dependence; Z79.4 Long term (current) use of insulin; Z79.899 Other long term (current) drug therapy; Z79.811 Long term (current) use of aromatase inhibitors; Z79.52 Long term (current) use of systemic steroids; Z53.9 Procedure and treatment not carried out, unspecified reason

== ENCOUNTER 2022-03-12 16:48 | Emergency (ER) | payer OTHER ==
[~2022-03-12] VITALS: Ht 190.5 cm; Wt 119.3 kg
[2022-03-12] MEDS ORDERED: NAPR-837 PO (21:51)
[2022-03-12] MEDS ORDERED: CYCL-707 PO (21:51)
[2022-03-12 22:09] VITALS: BP 161/87
== END 2022-03-12 22:11 | disposition home or self-care (01) ==
LOC: M ED 16:48
DX: M51.16 Intervertebral disc disorders with radiculopathy, lumbar region (principal); E11.9 Type 2 diabetes mellitus without complications; K21.9 Gastro-esophageal reflux disease without esophagitis; F32.A Depression, unspecified; J44.9 Chronic obstructive pulmonary disease, unspecified; Z79.52 Long term (current) use of systemic steroids; Z79.891 Long term (current) use of opiate analgesic; Z79.811 Long term (current) use of aromatase inhibitors; Z79.899 Other long term (current) drug therapy

== ENCOUNTER 2022-03-27 08:32 | Outpatient (RCR) | payer OTHER ==
[~2022-03-27 08:32] MED LIST changes: +CYCL-707 PO; +NAPR-837 PO
== END 2022-04-08 ==
LOC: M ST 08:32
PROVIDERS: ATTEND Otolaryngology
DX: Z90.02 Acquired absence of larynx (principal); Z96.3 Presence of artificial larynx

== ENCOUNTER → 2022-04-23 | Outpatient (REF) | payer OTHER ==
[2022-04-23 18:16] LABS: BASO # 0.1 10^3/uL (0.0-0.2); BASO % 0.6 % (0.0-1.0); EOS # 0.3 10^3/uL (0.0-0.5); EOS % 3.5 % (0.0-3.0); HEMATOCRIT 49.5 % (42.0-52.0); HEMOGLOBIN 17.1 g/dl (13.5-17.5); LYMPH # 1.1 10^3/uL (1.5-5.0); LYMPH % 14.1 % (24.0-44.0); MEAN CORPUSCULAR HEMOGLOBIN 32.1 pg (27.0-33.0); MEAN CORPUSCULAR HGB CONC 34.5 g/dl (32.0-36.5); MONO # 0.8 10^3/uL (0.0-0.8); MONO % 10.1 % (2.0-8.0); NEUTROPHILS # 5.8 10^3/uL (1.5-8.5); NEUTROPHILS % 71.5 % (36.0-66.0); PLATELET COUNT, AUTOMATED 231 10^3/uL (150-450); RED BLOOD COUNT 5.32 10^6/uL (4.30-6.10); WHITE BLOOD COUNT 8.1 10^3/uL (4.0-10.0)
[2022-04-23 18:21] LABS: CREATININE, URINE 40.8 MG/DL; FREE T4 1.53 NG/DL (0.89-1.76); THYROID STIMULATING HORMONE 0.249 uIU/ML (0.55-4.78)
[2022-04-23 18:22] LABS: MAU/CREAT RATIO 39.2 MCG/MG (0.0-30.0)
[2022-04-23 18:30] LABS: ALBUMIN 4.1 G/DL (3.2-5.2); ALKALINE PHOSPHATASE 95 U/L (46-116); ALT/SGPT 25 U/L (7.0-40); AST/SGOT 21 U/L (<34); BLOOD UREA NITROGEN 10 MG/DL (9-23); CALCIUM LEVEL 9.2 MG/DL (8.3-10.6); CARBON DIOXIDE LEVEL 29 MMOL/L (20-31); CHLORIDE LEVEL 105 MMOL/L (98-107); CHOLESTEROL LEVEL 129 MG/DL (<200); CHOLESTEROL RISK RATIO 2.81 (<5); CREATININE FOR GFR 0.78 MG/DL (0.70-1.30); GLOMERULAR FILTRATION RATE > 60.0 (>49); GLUCOSE, FASTING 186 MG/DL (74-106); HDL CHOLESTEROL 45.9 MG/DL (>40); LDL CHOLESTEROL 61.1 MG/DL (<100); NON-HDL-C 83.1 MG/DL; POTASSIUM SERUM 4.1 MMOL/L (3.5-5.1); SODIUM LEVEL 141 MMOL/L (136-145); TRIGLYCERIDES LEVEL 110 MG/DL (<150)
[2022-04-23 19:54] LABS: HEMOGLOBIN A1c 7.6 % (4.0-6.0)
== END ==
LOC: M SFHCCLAY 10:52
PROVIDERS: ATTEND Nurse Practitioner Family
DX: G47.00 Insomnia, unspecified (principal); I65.21 Occlusion and stenosis of right carotid artery; R13.14 Dysphagia, pharyngoesophageal phase; F41.9 Anxiety disorder, unspecified; I10 Essential (primary) hypertension; R16.0 Hepatomegaly, not elsewhere classified; R10.84 Generalized abdominal pain; I73.9 Peripheral vascular disease, unspecified; M54.2 Cervicalgia; J44.9 Chronic obstructive pulmonary disease, unspecified; E03.9 Hypothyroidism, unspecified; L71.9 Rosacea, unspecified; Z93.0 Tracheostomy status

== ENCOUNTER → 2022-05-08 | Outpatient (CLI) | payer OTHER ==
[2022-05-08 09:29] LABS: HEMATOCRIT 43.7 % (42.0-52.0); HEMOGLOBIN 15.8 g/dl (13.5-17.5); MEAN CORPUSCULAR HEMOGLOBIN 32.5 pg (27.0-33.0); MEAN CORPUSCULAR HGB CONC 36.2 g/dl (32.0-36.5); MEAN CORPUSCULAR VOLUME 89.9 fl (80.0-96.0); PLATELET COUNT, AUTOMATED 200 10^3/uL (150-450); RED BLOOD COUNT 4.86 10^6/uL (4.30-6.10); WHITE BLOOD COUNT 5.4 10^3/uL (4.0-10.0)
[2022-05-08 09:40] LABS: INR 1.14; PROTHROMBIN TIME 14.8 SECONDS (12.5-14.5)
[2022-05-08 09:56] LABS: ALBUMIN 3.6 G/DL (3.2-5.2); ALKALINE PHOSPHATASE 85 U/L (46-116); ALT/SGPT 22 U/L (7.0-40); AST/SGOT 18 U/L (<34); BILIRUBIN,TOTAL 1.7 MG/DL (0.3-1.2); BLOOD UREA NITROGEN 8 MG/DL (9-23); CARBON DIOXIDE LEVEL 27 MMOL/L (20-31); CHLORIDE LEVEL 108 MMOL/L (98-107); CREATININE FOR GFR 0.71 MG/DL (0.70-1.30); GLOMERULAR FILTRATION RATE > 60.0 (>49); GLUCOSE, FASTING 193 MG/DL (74-106); POTASSIUM SERUM 3.5 MMOL/L (3.5-5.1); SODIUM LEVEL 140 MMOL/L (136-145); TOTAL PROTEIN 6.2 G/DL (5.7-8.2)
== END ==
LOC: M LAB 08:32
PROVIDERS: ATTEND Physician Assistant
DX: K74.60 Unspecified cirrhosis of liver (principal)

== ENCOUNTER → 2022-06-04 | Outpatient (CLI) | payer OTHER | LOC: M RAD 06:49 | PROVIDERS: ATTEND Physician Assistant | DX: K74.60 Unspecified cirrhosis of liver (principal); Z12.11 Encounter for screening for malignant neoplasm of colon; K59.00 Constipation, unspecified; R13.10 Dysphagia, unspecified; K21.9 Gastro-esophageal reflux disease without esophagitis ==

== ENCOUNTER 2022-08-26 08:55 | Outpatient (RCR) | payer OTHER ==
[~2022-08-26 08:55] MED LIST changes: -LOSA100T45 PO; +LOSA100T46 PO
== END 2022-09-08 ==
LOC: M ST 08:55
PROVIDERS: ATTEND Otolaryngology
DX: Z90.02 Acquired absence of larynx (principal); Z96.3 Presence of artificial larynx

== ENCOUNTER 2022-09-25 12:58 | Outpatient (RCR) | payer OTHER ==
[~2022-09-25 12:58] MED LIST changes: -GABA-283 PO; +GABA-284 PO
== END 2022-10-09 ==
LOC: M ST 12:58
PROVIDERS: ATTEND Otolaryngology
DX: Z96.3 Presence of artificial larynx (principal)

== ENCOUNTER → 2022-09-26 | Outpatient (CLI) | payer OTHER | LOC: M RAD 06:34 | PROVIDERS: ATTEND Internal Medicine Pulmonary Disease | DX: Z87.891 Personal history of nicotine dependence (principal) ==

== ENCOUNTER 2022-10-29 13:26 | Emergency (ER) | payer OTHER ==
[~2022-10-29] VITALS: Ht 190.5 cm; Wt 115.7 kg
[2022-10-29 13:26] VITALS: TEMP 98.4; O2SAT 98
[2022-10-29 13:33] VITALS: BP 170/78
[2022-10-29] MEDS ORDERED: AMIT50TA (13:36)
== END 2022-10-29 15:56 | disposition home or self-care (01) ==
LOC: M ED 13:26
DX: S20.20XA Contusion of thorax, unspecified, initial encounter (principal); W19.XXXA Unspecified fall, initial encounter; Y92.009 Unspecified place in unspecified non-institutional (private) residence as the place of occurrence of the external cause; Y93.89 Activity, other specified; Y99.8 Other external cause status; E11.9 Type 2 diabetes mellitus without complications; I10 Essential (primary) hypertension; G56.90 Unspecified mononeuropathy of unspecified upper limb; K70.10 Alcoholic hepatitis without ascites; Z87.891 Personal history of nicotine dependence; Z85.20 Personal history of malignant neoplasm of unspecified respiratory organ; Z79.51 Long term (current) use of inhaled steroids; Z79.899 Other long term (current) drug therapy

== ENCOUNTER 2022-12-10 09:48 | Outpatient (RCR) | payer OTHER ==
[~2022-12-10 09:48] MED LIST changes: +AMIT50TA
== END 2023-01-08 ==
LOC: M ST 09:48
PROVIDERS: ATTEND Otolaryngology
DX: Z90.02 Acquired absence of larynx (principal); Z96.3 Presence of artificial larynx

== ENCOUNTER 2023-03-02 16:52 | Emergency (ER) | payer OTHER ==
[~2023-03-02] VITALS: Ht 190.5 cm; Wt 128.7 kg
[2023-03-02 16:52] VITALS: TEMP 99.3
[2023-03-02] MEDS ORDERED: PANT40TA29 (17:09)
[2023-03-02] MEDS ORDERED: ATOR1TAB19 (17:09)
[2023-03-02] MEDS ORDERED: AMIT25TA19 (17:09)
[2023-03-02] MEDS ORDERED: GABA600T4 (17:09)
[2023-03-02] MEDS ORDERED: BUPR300T92 (17:09)
[2023-03-02] MEDS ORDERED: AMLO1TAB25 (17:09)
[2023-03-02] MEDS ORDERED: CARV3.12 (17:09)
[2023-03-02 18:25] LABS: BASO % 0.8 % (0.0-1.0); EOS # 0.2 10^3/uL (0.0-0.5); EOS % 3.6 % (0.0-3.0); HEMATOCRIT 43.9 % (42.0-52.0); HEMOGLOBIN 16.1 g/dl (13.5-17.5); LYMPH # 0.9 10^3/uL (1.5-5.0); LYMPH % 17.1 % (24.0-44.0); MEAN CORPUSCULAR HEMOGLOBIN 32.3 pg (27.0-33.0); MEAN CORPUSCULAR VOLUME 88.2 fl (80.0-96.0); MONO # 0.5 10^3/uL (0.0-0.8); MONO % 9.5 % (2.0-8.0); NEUTROPHILS # 3.6 10^3/uL (1.5-8.5); NEUTROPHILS % 68.6 % (36.0-66.0); PLATELET COUNT, AUTOMATED 194 10^3/uL (150-450); RED BLOOD COUNT 4.98 10^6/uL (4.30-6.10); WHITE BLOOD COUNT 5.3 10^3/uL (4.0-10.0)
[2023-03-02 18:44] LABS: BLOOD UREA NITROGEN 7 MG/DL (9-23); CALCIUM LEVEL 9.2 MG/DL (8.3-10.6); CARBON DIOXIDE LEVEL 26 MMOL/L (20-31); CHLORIDE LEVEL 105 MMOL/L (98-107); CREATININE FOR GFR 0.77 MG/DL (0.70-1.30); GLOMERULAR FILTRATION RATE > 60.0 (>49); GLUCOSE, FASTING 328 MG/DL (74-106); POTASSIUM SERUM 3.8 MMOL/L (3.5-5.1); SODIUM LEVEL 138 MMOL/L (136-145)
[2023-03-02 18:48] LABS: MEAN CORPUSCULAR HGB CONC 36.7 g/dl (32.0-36.5)
[2023-03-02 19:07] LABS: INR 1.25; PROTHROMBIN TIME 15.3 SECONDS (12.5-14.5)
[2023-03-02 19:08] LABS: PARTIAL THROMBOPLASTIN TIME 29.8 SECONDS (24.8-34.2)
[2023-03-02] MEDS ORDERED: KETOROLAC 30 MG/ML 1ML VIAL IM ONE (19:20)
[2023-03-02] MEDS ORDERED: MAG SULF 1GM/100ML (MAG RUN) 1 GM in IV 1 EA IV ONE (19:20)
[2023-03-02] MEDS ORDERED: METOCLOPRAMIDE INJ 10MG/2ML VIAL IV ONE (19:20)
[2023-03-02] MEDS ORDERED: NS 1,000 ML IV ONE (19:20)
[2023-03-02] MEDS ORDERED: KETOROLAC 30 MG/ML 1ML VIAL IV ONE (19:55)
[2023-03-02] MEDS ORDERED: ISOVUE-370 76% 100ML VIAL As Ordered ONE (21:00)
[2023-03-02] MEDS ORDERED: CLOPIDOGREL 300 MG TAB (PLAVIX) PO STA (22:43)
[2023-03-03 00:15] LABS: RSV AMPLIFICATION NEGATIVE (NEGATIVE)
[2023-03-03 02:45] VITALS: BP 154/90; O2SAT 95
== END 2023-03-03 02:47 | disposition short-term general hospital (02) ==
LOC: M ED 16:52
DX: I65.23 Occlusion and stenosis of bilateral carotid arteries (principal); G46.1 Anterior cerebral artery syndrome; F32.A Depression, unspecified; E78.5 Hyperlipidemia, unspecified; I10 Essential (primary) hypertension; K21.9 Gastro-esophageal reflux disease without esophagitis; E03.9 Hypothyroidism, unspecified; J44.9 Chronic obstructive pulmonary disease, unspecified; Z87.891 Personal history of nicotine dependence; Z79.52 Long term (current) use of systemic steroids; Z79.891 Long term (current) use of opiate analgesic; Z79.02 Long term (current) use of antithrombotics/antiplatelets; Z79.899 Other long term (current) drug therapy
CPT/HCPCS: 70450; 70496; 70498; 80048; 85025; 85610; 85730; 87631; 93041; 94760; 96365; 96366; 96375; 99285; J1100; J1885; J2765; J3475; Q9967

== ENCOUNTER → 2023-03-16 | Outpatient (REF) | payer OTHER ==
[~2023-03-16] MED LIST changes: +AMIT25TA19; +AMLO1TAB25; +ATOR1TAB19; +BUPR300T92; +CARV3.12; +GABA600T4; +PANT40TA29
[2023-03-16 19:07] LABS: ALBUMIN 3.8 G/DL (3.2-5.2); ALKALINE PHOSPHATASE 93 U/L (46-116); ALT/SGPT 28 U/L (7.0-40); AST/SGOT 18 U/L (<34); BILIRUBIN,TOTAL 1.9 MG/DL (0.3-1.2); BLOOD UREA NITROGEN 6 MG/DL (9-23); CALCIUM LEVEL 8.8 MG/DL (8.3-10.6); CARBON DIOXIDE LEVEL 28 MMOL/L (20-31); CHLORIDE LEVEL 107 MMOL/L (98-107); CHOLESTEROL LEVEL 115 MG/DL (<200); CHOLESTEROL RISK RATIO 2.61 (<5); CREATININE FOR GFR 0.73 MG/DL (0.70-1.30); GLOMERULAR FILTRATION RATE > 60.0 (>49); GLUCOSE, FASTING 244 MG/DL (74-106); POTASSIUM SERUM 4.1 MMOL/L (3.5-5.1); SODIUM LEVEL 140 MMOL/L (136-145); TOTAL PROTEIN 6.6 G/DL (5.7-8.2); TRIGLYCERIDES LEVEL 110 MG/DL (<150)
[2023-03-16 19:21] LABS: HEMOGLOBIN A1c 7.8 % (4.0-6.0)
== END ==
LOC: M SFHCCLAY 11:00
PROVIDERS: ATTEND Nurse Practitioner Family
DX: E11.65 Type 2 diabetes mellitus with hyperglycemia (principal)

== ENCOUNTER → 2023-04-20 | Outpatient (CLI) | payer OTHER | LOC: M RAD 15:20 | PROVIDERS: ATTEND Nurse Practitioner Family | DX: G44.52 New daily persistent headache (NDPH) (principal); I65.29 Occlusion and stenosis of unspecified carotid artery; H53.2 Diplopia; H53.9 Unspecified visual disturbance ==

== ENCOUNTER 2023-05-01 10:26 | Outpatient (RCR) | payer OTHER | END 2023-05-10 | LOC: M ST 10:26 | PROVIDERS: ATTEND Otolaryngology | DX: Z96.3 Presence of artificial larynx (principal) ==

== ENCOUNTER → 2023-06-15 | Outpatient (CLI) | payer OTHER ==
[~2023-06-15] MED LIST changes: +BUPR-597; +BUPR-597 PO; -BUPR300T92; -BUPR300T92 PO; +TIZA4CAP3 PO; -TIZA4CAP6 PO
== END ==
LOC: M LAB 14:18
PROVIDERS: ATTEND Internal Medicine Gastroenterology
DX: K70.30 Alcoholic cirrhosis of liver without ascites (principal)

== ENCOUNTER 2023-06-17 13:05 | Outpatient (RCR) | payer OTHER | END 2023-07-10 | LOC: M ST 13:05 | PROVIDERS: ATTEND Otolaryngology | DX: Z90.02 Acquired absence of larynx (principal); Z96.3 Presence of artificial larynx ==

== ENCOUNTER → 2023-07-10 | Outpatient (CLI) | payer OTHER | LOC: M RAD 07:19 | PROVIDERS: ATTEND Internal Medicine Gastroenterology | DX: K70.30 Alcoholic cirrhosis of liver without ascites (principal); K76.0 Fatty (change of) liver, not elsewhere classified ==

== ENCOUNTER 2023-08-12 11:12 | Emergency (ER) | payer OTHER ==
[~2023-08-12] VITALS: Ht 190.5 cm; Wt 107.2 kg
[~2023-08-12 11:12] MED LIST changes: -AMIT25TA19; +AMIT25TA19 PO; -AMLO1TAB25; +AMLO1TAB25 PO; -BROV15NE NEB; -BUPR-597; -CARV3.12; +CARV3.12 PO; -PANT40TA29; +PANT40TA29 PO
[2023-08-12] MEDS ORDERED: CLOP75TA2 PO (11:29)
[2023-08-12] MEDS ORDERED: METF-838 PO (11:29)
[2023-08-12 12:20] LABS: VENOUS BASE EXCESS -1.4 (-2.0-2.0); VENOUS HCO3 22.9 MMOL/L (23.0-27.0); VENOUS O2 SATURATION 76.5 % (60.0-80.0); VENOUS PARTIAL PRESSURE CO2 37.8 mmHg (38.0-50.0); VENOUS PARTIAL PRESSURE O2 40.5 mmHg (30.0-50.0); VENOUS STANDARD HCO3 22.7 MMOL/L
[2023-08-12 12:26] LABS: BASO # 0.1 10^3/uL (0.0-0.2); BASO % 0.9 % (0.0-1.0); EOS # 0.6 10^3/uL (0.0-0.5); EOS % 9.6 % (0.0-3.0); HEMATOCRIT 45.2 % (42.0-52.0); HEMOGLOBIN 16.8 g/dl (13.5-17.5); LYMPH # 1.1 10^3/uL (1.5-5.0); MEAN CORPUSCULAR HEMOGLOBIN 32.8 pg (27.0-33.0); MEAN CORPUSCULAR VOLUME 88.3 fl (80.0-96.0); MONO # 0.6 10^3/uL (0.0-0.8); MONO % 9.4 % (2.0-8.0); NEUTROPHILS # 4.2 10^3/uL (1.5-8.5); NEUTROPHILS % 63.9 % (36.0-66.0); PLATELET COUNT, AUTOMATED 217 10^3/uL (150-450); RED BLOOD COUNT 5.12 10^6/uL (4.30-6.10); WHITE BLOOD COUNT 6.6 10^3/uL (4.0-10.0)
[2023-08-12] MEDS: methylPREDNISolone 125MG 2ML VIAL IV ONE (12:35)
[2023-08-12 12:38] LABS: MEAN CORPUSCULAR HGB CONC 37.2 g/dl (32.0-36.5)
[2023-08-12 12:50] LABS: ALBUMIN 4.3 G/DL (3.2-5.2); ALKALINE PHOSPHATASE 81 U/L (46-116); ALT/SGPT 24 U/L (7.0-40); AST/SGOT 19 U/L (<34); BILIRUBIN,TOTAL 2.5 MG/DL (0.3-1.2); BLOOD UREA NITROGEN 11 MG/DL (9-23); CALCIUM LEVEL 9.5 MG/DL (8.3-10.6); CARBON DIOXIDE LEVEL 24 MMOL/L (20-31); CHLORIDE LEVEL 108 MMOL/L (98-107); CREATININE FOR GFR 0.83 MG/DL (0.70-1.30); GLOMERULAR FILTRATION RATE > 60.0 (>49); GLUCOSE, FASTING 198 MG/DL (74-106); POTASSIUM SERUM 4.1 MMOL/L (3.5-5.1); SODIUM LEVEL 141 MMOL/L (136-145)
[2023-08-12 12:53] LABS: THYROID STIMULATING HORMONE 0.092 uIU/ML (0.55-4.78)
[2023-08-12] MEDS ORDERED: ATOR1TAB21 PO (13:15)
[2023-08-12] MEDS ORDERED: HOME MED LIST COMPLETE! XX SCH (13:15)
[2023-08-12 14:11] VITALS: O2SAT 96
[2023-08-12 14:16] LABS: FREE T4 1.55 NG/DL (0.89-1.76)
[2023-08-12] MEDS ORDERED: PRED10TA2 PO (14:37)
[2023-08-12 14:45] VITALS: BP 176/84; O2SAT 95
[2023-08-12 14:53] VITALS: TEMP 97.3
== END 2023-08-12 14:54 | disposition home or self-care (01) ==
LOC: M ED 11:12
DX: J44.1 Chronic obstructive pulmonary disease with (acute) exacerbation (principal); I49.3 Ventricular premature depolarization; E11.9 Type 2 diabetes mellitus without complications; I10 Essential (primary) hypertension; K21.9 Gastro-esophageal reflux disease without esophagitis; F32.0 Major depressive disorder, single episode, mild; Z87.891 Personal history of nicotine dependence; Z85.819 Personal history of malignant neoplasm of unspecified site of lip, oral cavity, and pharynx; Z79.52 Long term (current) use of systemic steroids; Z79.4 Long term (current) use of insulin; Z79.899 Other long term (current) drug therapy
CPT/HCPCS: 71045; 80048; 80076; 82803; 83605; 83880; 84439; 84443; 85025; 87040; 87486; 87581; 87633; 87798; 93005; 93041; 94760; 96374; 99285; J2919

== ENCOUNTER → 2023-09-15 | Outpatient (REF) | payer OTHER ==
[~2023-09-15] MED LIST changes: +ATOR1TAB21 PO; +METF-838 PO; +PRED10TA2 PO
[2023-09-15 17:03] LABS: ALKALINE PHOSPHATASE 90 U/L (46-116); ALT/SGPT 28 U/L (7.0-40); AST/SGOT 23 U/L (<34); BILIRUBIN,TOTAL 2.4 MG/DL (0.3-1.2); BLOOD UREA NITROGEN 11 MG/DL (9-23); CALCIUM LEVEL 9.5 MG/DL (8.3-10.6); CARBON DIOXIDE LEVEL 28 MMOL/L (20-31); CHLORIDE LEVEL 104 MMOL/L (98-107); CREATININE FOR GFR 0.81 MG/DL (0.70-1.30); GLOMERULAR FILTRATION RATE > 60.0 (>49); GLUCOSE, FASTING 197 MG/DL (74-106); MAGNESIUM LEVEL 1.7 MG/DL (1.8-2.4); POTASSIUM SERUM 4.2 MMOL/L (3.5-5.1); SODIUM LEVEL 138 MMOL/L (136-145); TOTAL PROTEIN 6.7 G/DL (5.7-8.2)
[2023-09-15 17:35] LABS: HEMOGLOBIN A1c 6.3 % (4.0-6.0)
== END ==
LOC: M SFHCCLAY 11:41
PROVIDERS: ATTEND Nurse Practitioner Family
DX: E11.65 Type 2 diabetes mellitus with hyperglycemia (principal); R16.0 Hepatomegaly, not elsewhere classified

== ENCOUNTER 2023-10-15 08:31 | Outpatient (RCR) | payer OTHER ==
[~2023-10-15 08:31] MED LIST changes: +GABA-1490; -GABA600T4
== END 2023-11-09 ==
LOC: M ST 08:31
PROVIDERS: ATTEND Otolaryngology
DX: Z96.3 Presence of artificial larynx (principal)

== ENCOUNTER → 2023-10-26 | Outpatient (CLI) | payer OTHER | LOC: M RAD 06:33 | PROVIDERS: ATTEND Internal Medicine Pulmonary Disease | DX: Z12.2 Encounter for screening for malignant neoplasm of respiratory organs (principal); Z87.891 Personal history of nicotine dependence ==

== ENCOUNTER → 2024-03-21 | Outpatient (REF) | payer OTHER ==
[2024-03-21 16:35] LABS: APPEARANCE, URINE CLEAR (CLEAR); BACTERIA, URINE AUTO NEGATIVE (NEGATIVE); BILIRUBIN, URINE AUTO NEGATIVE (NEGATIVE); BLOOD, URINE BLOOD NEGATIVE (NEGATIVE); COLOR, URINE YELLOW (YELLOW); GLUCOSE, URINE (UA) AUTO 3+ mg/dL (NEGATIVE); KETONE, URINE AUTO TRACE mg/dL (NEGATIVE); LEUKOCYTE ESTERASE, URINE AUTO NEGATIVE (NEGATIVE); MUCUS, URINE SMALL (NEGATIVE); NITRITE, URINE AUTO NEGATIVE (NEGATIVE); PROTEIN, URINE AUTO 1+ mg/dL (NEGATIVE); RBC, URINE AUTO 0 /HPF (0-3); SPECIFIC GRAVITY URINE AUTO 1.014 (1.002-1.035); SQUAMOUS EPITHELIAL CELL UR AU 0 /HPF (0-6); WBC, URINE AUTO 0 /HPF (0-3)
[2024-03-21 19:19] LABS: PSA SCREENING 2.01 NG/ML (< 4.00)
[2024-03-21 19:20] LABS: BASO % 0.7 % (0.0-1.0); EOS # 0.1 10^3/uL (0.0-0.5); EOS % 2.3 % (0.0-3.0); HEMATOCRIT 46.8 % (42.0-52.0); HEMOGLOBIN 17.2 g/dl (13.5-17.5); LYMPH # 1.2 10^3/uL (1.5-5.0); LYMPH % 20.4 % (24.0-44.0); MEAN CORPUSCULAR HEMOGLOBIN 33.1 pg (27.0-33.0); MONO # 0.8 10^3/uL (0.0-0.8); MONO % 12.5 % (2.0-8.0); NEUTROPHILS # 3.9 10^3/uL (1.5-8.5); NEUTROPHILS % 63.9 % (36.0-66.0); PLATELET COUNT, AUTOMATED 209 10^3/uL (150-450); WHITE BLOOD COUNT 6.1 10^3/uL (4.0-10.0)
[2024-03-21 19:23] LABS: THYROID STIMULATING HORMONE 0.122 uIU/ML (0.55-4.78)
[2024-03-21 19:24] LABS: FREE T4 1.56 NG/DL (0.89-1.76)
[2024-03-21 19:26] LABS: ALBUMIN 4.1 G/DL (3.2-5.2); ALKALINE PHOSPHATASE 84 U/L (40-129); ALT/SGPT 35 U/L (7.0-40); AST/SGOT 21 U/L (<34); BLOOD UREA NITROGEN 11 MG/DL (9-23); CALCIUM LEVEL 9.2 MG/DL (8.3-10.6); CARBON DIOXIDE LEVEL 24 MMOL/L (20-31); CHLORIDE LEVEL 106 MMOL/L (98-107); CHOLESTEROL LEVEL 146 MG/DL (<200); CHOLESTEROL RISK RATIO 2.57 (<5); CREATININE FOR GFR 0.63 MG/DL (0.70-1.30); GLOMERULAR FILTRATION RATE > 60.0 (>49); GLUCOSE, FASTING 219 MG/DL (74-106); HDL CHOLESTEROL 56.8 MG/DL (>40); LDL CHOLESTEROL 55.8 MG/DL (<100); MAGNESIUM LEVEL 1.8 MG/DL (1.8-2.4); NON-HDL-C 89.2 MG/DL; POTASSIUM SERUM 4.3 MMOL/L (3.5-5.1); SODIUM LEVEL 139 MMOL/L (136-145); TOTAL PROTEIN 7.2 G/DL (5.7-8.2); TRIGLYCERIDES LEVEL 167 MG/DL (<150)
[2024-03-21 19:33] LABS: MEAN CORPUSCULAR HGB CONC 36.8 g/dl (32.0-36.5)
[2024-03-21 19:42] LABS: HEMOGLOBIN A1c 6.3 % (4.0-6.0)
== END ==
LOC: M SFHCCLAY 13:30
PROVIDERS: ATTEND Nurse Practitioner Family
DX: R35.0 Frequency of micturition (principal); I65.21 Occlusion and stenosis of right carotid artery; G47.00 Insomnia, unspecified; R13.14 Dysphagia, pharyngoesophageal phase; F41.9 Anxiety disorder, unspecified; I10 Essential (primary) hypertension; R16.0 Hepatomegaly, not elsewhere classified; R10.84 Generalized abdominal pain; I73.9 Peripheral vascular disease, unspecified; M54.2 Cervicalgia; J44.9 Chronic obstructive pulmonary disease, unspecified; E03.9 Hypothyroidism, unspecified; L71.9 Rosacea, unspecified; Z93.0 Tracheostomy status; E11.65 Type 2 diabetes mellitus with hyperglycemia

== ENCOUNTER 2024-03-28 19:28 | Emergency (ER) | payer OTHER ==
[~2024-03-28] VITALS: Ht 190.5 cm; Wt 101.2 kg
[2024-03-28 21:04] LABS: BASO % 0.6 % (0.0-1.0); EOS % 0.4 % (0.0-3.0); HEMATOCRIT 44.8 % (42.0-52.0); HEMOGLOBIN 16.4 g/dl (13.5-17.5); LYMPH % 18.8 % (24.0-44.0); MEAN CORPUSCULAR HEMOGLOBIN 33.2 pg (27.0-33.0); MEAN CORPUSCULAR VOLUME 90.7 fl (80.0-96.0); MONO # 0.7 10^3/uL (0.0-0.8); MONO % 13.7 % (2.0-8.0); NEUTROPHILS # 3.3 10^3/uL (1.5-8.5); NEUTROPHILS % 66.1 % (36.0-66.0); PLATELET COUNT, AUTOMATED 147 10^3/uL (150-450); RED BLOOD COUNT 4.94 10^6/uL (4.30-6.10)
[2024-03-28 21:05] LABS: MEAN CORPUSCULAR HGB CONC 36.6 g/dl (32.0-36.5)
[2024-03-28 21:20] LABS: ALBUMIN 3.7 G/DL (3.2-5.2); ALKALINE PHOSPHATASE 87 U/L (40-129); ALT/SGPT 32 U/L (7.0-40); AST/SGOT 32 U/L (<34); BILIRUBIN,DIRECT 0.8 MG/DL (<0.4); BILIRUBIN,TOTAL 2.1 MG/DL (0.3-1.2); BLOOD UREA NITROGEN 9 MG/DL (9-23); CALCIUM LEVEL 9.2 MG/DL (8.3-10.6); CARBON DIOXIDE LEVEL 30 MMOL/L (20-31); CHLORIDE LEVEL 104 MMOL/L (98-107); CREATININE FOR GFR 0.65 MG/DL (0.70-1.30); GLOMERULAR FILTRATION RATE > 60.0 (>49); GLUCOSE, FASTING 155 MG/DL (74-106); POTASSIUM SERUM 3.5 MMOL/L (3.5-5.1); SODIUM LEVEL 145 MMOL/L (136-145)
[2024-03-28 23:57] VITALS: TEMP 96.8
[2024-03-29] MEDS: IPRATROPIUM 0.5MG/ALBUTEROL 2.5MG INH SOL UD 3ML (DUONEB) NEB ONE (00:18)
[2024-03-29 03:38] VITALS: BP 191/112
[2024-03-29] MEDS: CARVedilol 3.125 MG TAB PO ONE (03:38)
[2024-03-29] MEDS: dexAMETHasone 20MG/5ML VIAL IV ONE (05:02)
[2024-03-29] MEDS ORDERED: TIZA2TA PO (05:27)
[2024-03-29] MEDS ORDERED: HOME MED LIST COMPLETE! XX SCH (05:30)
[2024-03-29 06:00] VITALS: BP 151/70; O2SAT 97
[2024-03-29] MEDS ORDERED: ZITH250T PO (06:36)
[2024-03-29] MEDS ORDERED: MED REC COMMENT (23:40)
== END 2024-03-29 06:50 | disposition home or self-care (01) ==
LOC: M ED 19:28
DX: J44.1 Chronic obstructive pulmonary disease with (acute) exacerbation (principal); Z87.891 Personal history of nicotine dependence; C32.9 Malignant neoplasm of larynx, unspecified; Z93.0 Tracheostomy status; Z91.199 Patient's noncompliance with other medical treatment and regimen due to unspecified reason; Z79.899 Other long term (current) drug therapy

== ENCOUNTER 2024-03-29 19:34 | Inpatient (IN) | payer OTHER ==
[~2024-03-29] VITALS: Ht 188 cm; Wt 102.3 kg
[~2024-03-29 19:34] MED LIST changes: +TIZA2TA PO; +ZITH250T PO
[2024-03-29] MEDS: methylPREDNISolone 125MG 2ML VIAL IV ONE (19:50)
[2024-03-29 21:20] LABS: BASO % 0.2 % (0.0-1.0); EOS % 0.4 % (0.0-3.0); HEMATOCRIT 44.3 % (42.0-52.0); HEMOGLOBIN 16.3 g/dl (13.5-17.5); LYMPH # 0.4 10^3/uL (1.5-5.0); LYMPH % 7.9 % (24.0-44.0); MEAN CORPUSCULAR HEMOGLOBIN 32.9 pg (27.0-33.0); MEAN CORPUSCULAR VOLUME 89.3 fl (80.0-96.0); MONO # 0.4 10^3/uL (0.0-0.8); MONO % 7.1 % (2.0-8.0); NEUTROPHILS # 4.4 10^3/uL (1.5-8.5); PLATELET COUNT, AUTOMATED 142 10^3/uL (150-450); RED BLOOD COUNT 4.96 10^6/uL (4.30-6.10); WHITE BLOOD COUNT 5.2 10^3/uL (4.0-10.0)
[2024-03-29 21:25] LABS: CK-MB VALUE MASS 3.2 NG/ML (<3.6)
[2024-03-29 21:27] LABS: CPK CREATINE PHOSPHOKINASE 185 U/L (46-171); MB/CK RELATIVE INDEX 1.72 (< OR =4)
[2024-03-29 21:29] LABS: THYROID STIMULATING HORMONE 0.122 uIU/ML (0.55-4.78); THYROXINE (T4) 11.3 UG/DL (4.5-10.9)
[2024-03-29 21:33] LABS: ALBUMIN 3.5 G/DL (3.2-5.2); ALKALINE PHOSPHATASE 81 U/L (40-129); ALT/SGPT 31 U/L (7.0-40); AST/SGOT 26 U/L (<34); BILIRUBIN,DIRECT 1.1 MG/DL (<0.4); BILIRUBIN,TOTAL 2.7 MG/DL (0.3-1.2); BLOOD UREA NITROGEN 15 MG/DL (9-23); CALCIUM LEVEL 8.8 MG/DL (8.3-10.6); CARBON DIOXIDE LEVEL 24 MMOL/L (20-31); CHLORIDE LEVEL 104 MMOL/L (98-107); CREATININE FOR GFR 0.61 MG/DL (0.70-1.30); GLOMERULAR FILTRATION RATE > 60.0 (>49); GLUCOSE, FASTING 360 MG/DL (74-106); MEAN CORPUSCULAR HGB CONC 36.8 g/dl (32.0-36.5); POTASSIUM SERUM 3.3 MMOL/L (3.5-5.1); SODIUM LEVEL 143 MMOL/L (136-145); TOTAL PROTEIN 6.7 G/DL (5.7-8.2)
[2024-03-29] MEDS ORDERED: ISOVUE-370 76% 100ML VIAL As Ordered ONE (21:40)
[2024-03-29 22:51] LABS: MB/CK RELATIVE INDEX 1.65 (< OR =4)
[2024-03-29] MEDS: AZITHROMYCIN 250MG TABLET PO ONE (23:25)
[2024-03-29] MEDS: cefTRIAXone SOD 1 GM in DEXTROSE 5% (D5W) ADV/MINI-BAG 50 ML IV ONE (23:25)
[2024-03-29] MEDS ORDERED: MED REC COMMENT (23:40)
[2024-03-29] MEDS ORDERED: HOME MED LIST COMPLETE! XX SCH (23:45)
[2024-03-30 00:13] LABS: PROCALCITONIN 0.05 ng/ml
[2024-03-30] MEDS ORDERED: IPRATROPIUM 0.5MG/ALBUTEROL 2.5MG INH SOL UD 3ML (DUONEB) NEB SCH (00:25)
[2024-03-30] MEDS ORDERED: ALBUTEROL 90 MCG/ACT 8GM HFA INHALER INH PRN (00:25)
[2024-03-30] MEDS ORDERED: ACETAMINOPHEN 325 MG TAB PO PRN (00:45)
[2024-03-30] MEDS: guaiFENesin ER TABLET 600 MG TAB PO SCH (01:26)
[2024-03-30] MEDS: LEVALBUTEROL 1.25MG 0.5ML CONCENTRATE NEB NEB SCH (02:56)
[2024-03-30] MEDS: methylPREDNISolone 125MG 2ML VIAL IV SCH (04:12)
[2024-03-30] MEDS ORDERED: PILL CUTTER 1 EACH XX PRN (04:40)
[2024-03-30] MEDS: tiZANidine 4 MG TAB PO ONE (04:47)
[2024-03-30] MEDS: LEVOTHYROXINE 150MCG TABLET (0.15MG) PO SCH (06:00)
[2024-03-30] MEDS ORDERED: GLUCAGON INJ 1MG VIAL SC PRN (07:30)
[2024-03-30] MEDS ORDERED: GLUCOSE 4 GM CHEW PO PRN (07:30)
[2024-03-30] MEDS ORDERED: DEXTROSE 50% 50ML SYRINGE IV PRN (07:30)
[2024-03-30 07:59] LABS: EOS % 0.1 % (0.0-3.0); HEMATOCRIT 39.2 % (42.0-52.0); HEMOGLOBIN 14.4 g/dl (13.5-17.5); LYMPH # 0.5 10^3/uL (1.5-5.0); LYMPH % 6.3 % (24.0-44.0); MEAN CORPUSCULAR HEMOGLOBIN 33.1 pg (27.0-33.0); MEAN CORPUSCULAR VOLUME 90.1 fl (80.0-96.0); MONO # 0.3 10^3/uL (0.0-0.8); MONO % 3.7 % (2.0-8.0); NEUTROPHILS # 7.4 10^3/uL (1.5-8.5); NEUTROPHILS % 89.5 % (36.0-66.0); PLATELET COUNT, AUTOMATED 150 10^3/uL (150-450); RED BLOOD COUNT 4.35 10^6/uL (4.30-6.10); WHITE BLOOD COUNT 8.3 10^3/uL (4.0-10.0)
[2024-03-30 08:00] LABS: MEAN CORPUSCULAR HGB CONC 36.7 g/dl (32.0-36.5)
[2024-03-30 08:20] LABS: C REACTIVE PROTEIN QUANTITATIV 3.77 MG/DL (<1.0)
[2024-03-30 08:23] LABS: THYROID STIMULATING HORMONE 0.123 uIU/ML (0.55-4.78)
[2024-03-30 08:24] LABS: FREE T4 1.52 NG/DL (0.89-1.76)
[2024-03-30 08:28] LABS: PROCALCITONIN 0.07 ng/ml
[2024-03-30 08:35] LABS: ALKALINE PHOSPHATASE 65 U/L (40-129); ALT/SGPT 25 U/L (7.0-40); AST/SGOT 22 U/L (<34); BILIRUBIN,TOTAL 1.7 MG/DL (0.3-1.2); BLOOD UREA NITROGEN 22 MG/DL (9-23); CALCIUM LEVEL 8.3 MG/DL (8.3-10.6); CARBON DIOXIDE LEVEL 23 MMOL/L (20-31); CHLORIDE LEVEL 106 MMOL/L (98-107); GLOMERULAR FILTRATION RATE > 60.0 (>49); GLUCOSE, FASTING 345 MG/DL (74-106); MAGNESIUM LEVEL 1.8 MG/DL (1.8-2.4); POTASSIUM SERUM 3.8 MMOL/L (3.5-5.1); SODIUM LEVEL 142 MMOL/L (136-145); TOTAL PROTEIN 5.9 G/DL (5.7-8.2)
[2024-03-30] MEDS ORDERED: LORazepam 2 MG TAB PO PRN (09:20)
[2024-03-30] MEDS: FORMOTEROL FUMARATE 20 MCG/2 ML INHALATION SOLUTION (PERFOROMIST) INH SCH (09:27)
[2024-03-30] MEDS: BUDESONIDE 0.5 MG/2 ML INHALATION SUSPENSION INH SCH (09:27)
[2024-03-30] MEDS: MULTIVITAMINS/MINERALS THERAP 1 TAB PO SCH (09:44)
[2024-03-30] MEDS: PANTOPRAZOLE 40MG VIAL IV SCH (09:44)
[2024-03-30] MEDS: THIAMINE 100 MG TAB PO SCH (09:44)
[2024-03-30] MEDS: ENOXAPARIN 40MG/0.4ML SYRINGE (J1650 PER 10MG) SC SCH (09:44)
[2024-03-30] MEDS: INSULIN LISPRO (NovoLOG) PER UNIT SC SCH ×2 (09:44→21:00)
[2024-03-30] MEDS: FOLIC ACID 1MG TAB PO SCH (09:45)
[2024-03-30] MEDS: CLOPIDOGREL 75 MG TAB PO SCH (09:45)
[2024-03-30] MEDS: CARVedilol 3.125 MG TAB PO SCH (09:46)
[2024-03-30] MEDS: OXAZEPAM 15MG CAP PO SCH (15:22)
[2024-03-30] MEDS: buPROPion **XL** TABLET 150MG (WELLBUTRIN XL) PO SCH (15:22)
[2024-03-30] MEDS: cefTRIAXone SOD 1 GM in DEXTROSE 5% (D5W) ADV/MINI-BAG 50 ML IV SCH (15:23)
[2024-03-30] MEDS: ATORVASTATIN 20 MG TAB PO SCH (20:26)
[2024-03-30] MEDS: AZITHROMYCIN 250MG TABLET PO SCH (20:27)
[2024-03-30 22:41] VITALS: BP 147/86; TEMP 97.5; O2SAT 95
[2024-03-30 23:07] VITALS: BP 129/69; TEMP 97.9; O2SAT 94
[2024-03-31] VITALS (7 sets, daily range): BP systolic 120–137; BP diastolic 70–72; TEMP 97.8–98.2; O2SAT 91–99
[2024-03-31] MEDS ORDERED: LEVALBUTEROL 1.25MG 0.5ML CONCENTRATE NEB INH PRN (02:30)
[2024-03-31 04:30] LABS: ABG BASE EXCESS -1.5 (-2.0-2.0); ABG HCO3 22.3 MMOL/L (22.0-26.0); ABG O2 SATURATION 96.7 % (95.0-99.0); ABG PARTIAL PRESSURE CO2 35.4 mmHg (35.0-45.0); ABG PARTIAL PRESSURE O2 91.8 mmHg (75.0-100.0); ABG STANDARD HCO3 23.2 MMOL/L. (22.0-26.0); ABG TOTAL CO2 23.4 MMOL/L (23.0-31.0); ABG pH (ARTERIAL) 7.418 UNITS (7.350-7.450)
[2024-03-31 06:30] LABS: BASO % 0.1 % (0.0-1.0); EOS % 0.1 % (0.0-3.0); HEMATOCRIT 41.9 % (42.0-52.0); HEMOGLOBIN 15.4 g/dl (13.5-17.5); LYMPH # 0.7 10^3/uL (1.5-5.0); LYMPH % 5.1 % (24.0-44.0); MEAN CORPUSCULAR HEMOGLOBIN 33.6 pg (27.0-33.0); MEAN CORPUSCULAR VOLUME 91.3 fl (80.0-96.0); MONO # 0.5 10^3/uL (0.0-0.8); MONO % 4.1 % (2.0-8.0); NEUTROPHILS # 11.5 10^3/uL (1.5-8.5); NEUTROPHILS % 90.2 % (36.0-66.0); PLATELET COUNT, AUTOMATED 173 10^3/uL (150-450); RED BLOOD COUNT 4.59 10^6/uL (4.30-6.10); WHITE BLOOD COUNT 12.8 10^3/uL (4.0-10.0)
[2024-03-31 06:31] LABS: MEAN CORPUSCULAR HGB CONC 36.8 g/dl (32.0-36.5)
[2024-03-31 06:53] LABS: BLOOD UREA NITROGEN 31 MG/DL (9-23); C REACTIVE PROTEIN QUANTITATIV 1.83 MG/DL (<1.0); CALCIUM LEVEL 8.7 MG/DL (8.3-10.6); CARBON DIOXIDE LEVEL 26 MMOL/L (20-31); CHLORIDE LEVEL 106 MMOL/L (98-107); CREATININE FOR GFR 0.69 MG/DL (0.70-1.30); GLOMERULAR FILTRATION RATE > 60.0 (>49); GLUCOSE, FASTING 285 MG/DL (74-106); POTASSIUM SERUM 3.8 MMOL/L (3.5-5.1); SODIUM LEVEL 144 MMOL/L (136-145)
[2024-03-31] MEDS: LEVEMIR (INSULIN DETEMIR) 1 UNITS/0.01ML SC SCH (08:39)
[2024-03-31] MEDS: guaiFENesin ER TABLET 600 MG TAB PO SCH (08:40)
[2024-03-31] MEDS ORDERED: AZIT-12 PO (10:04)
[2024-03-31] MEDS ORDERED: PRED10TA2 PO (10:04)
[2024-03-31] MEDS ORDERED: CEFD300CAP PO (10:04)
[2024-03-31] MEDS ORDERED: METF-838 PO (10:04)
[2024-03-31] MEDS ORDERED: MUCI600T31 PO (10:04)
[2024-03-31] MEDS ORDERED: IPRA0.00 INH (10:06)
[2024-03-31] MEDS ORDERED: ALBU2.5V10 INH (10:06)
[2024-03-31] MEDS ORDERED: ALBU8.5H INH (10:06)
[2024-03-31] MEDS ORDERED: PRED20TA PO (10:06)
[2024-03-31] MEDS: CEFDINIR 300 MG CAP (OMNICEF) PO SCH (10:26)
[2024-04-01] MEDS ORDERED: predniSONE 20 MG TAB PO SCH (09:00)
[2024-04-01] MEDS ORDERED: MUCI1TAB16 PO (14:41)
[2024-04-01] MEDS ORDERED: PRED10TA2 PO (14:41)
[2024-04-01] MEDS ORDERED: ALBU2.5V10 INH (14:41)
[2024-04-01] MEDS ORDERED: PRED20TA PO (14:41)
[2024-04-01] MEDS ORDERED: IPRA0.00 INH (14:41)
[2024-04-01] MEDS ORDERED: METF-838 PO (14:41)
== END 2024-03-31 12:33 | disposition home health service (06) | DRG 137 ==
LOC: M ED 19:34 → M ED INP 03-30 04:44 → M PCU 03-30 22:30
PROVIDERS: ADMIT Student in an Organized Health Care Education/Training Program; ATTEND Internal Medicine
PROC: 0CJS8ZZ Inspection of Larynx, Via Natural or Artificial Opening Endoscopic (ICD-10-PCS; principal; 2024-03-30)
PROC: 0BJ18ZZ Inspection of Trachea, Via Natural or Artificial Opening Endoscopic (ICD-10-PCS; 2024-03-30)
DX: J69.0 Pneumonitis due to inhalation of food and vomit (principal); J96.01 Acute respiratory failure with hypoxia; E11.51 Type 2 diabetes mellitus with diabetic peripheral angiopathy without gangrene; I65.23 Occlusion and stenosis of bilateral carotid arteries; R13.10 Dysphagia, unspecified; E03.9 Hypothyroidism, unspecified; I10 Essential (primary) hypertension; J20.9 Acute bronchitis, unspecified; J44.1 Chronic obstructive pulmonary disease with (acute) exacerbation; K21.9 Gastro-esophageal reflux disease without esophagitis; K70.30 Alcoholic cirrhosis of liver without ascites; R41.9 Unspecified symptoms and signs involving cognitive functions and awareness; G47.33 Obstructive sleep apnea (adult) (pediatric); Z92.3 Personal history of irradiation; Z85.21 Personal history of malignant neoplasm of larynx; E78.5 Hyperlipidemia, unspecified; Z79.899 Other long term (current) drug therapy; Z90.02 Acquired absence of larynx; Z87.891 Personal history of nicotine dependence; Z93.0 Tracheostomy status

== ENCOUNTER 2024-04-01 11:36 | Observation (INO) | payer OTHER ==
[~2024-04-01] VITALS: Ht 188 cm; Wt 96.1 kg
[~2024-04-01 11:36] MED LIST changes: +ALBU8.5H INH; +AZIT-12 PO; +CEFD300CAP PO; +IPRA0.00 INH; +MED REC COMMENT; +MUCI600T31 PO
[2024-04-01 12:23] LABS: BASO % 0.2 % (0.0-1.0); EOS % 0.2 % (0.0-3.0); HEMATOCRIT 45.5 % (42.0-52.0); HEMOGLOBIN 16.4 g/dl (13.5-17.5); LYMPH # 0.6 10^3/uL (1.5-5.0); LYMPH % 5.4 % (24.0-44.0); MEAN CORPUSCULAR HEMOGLOBIN 32.9 pg (27.0-33.0); MEAN CORPUSCULAR VOLUME 91.4 fl (80.0-96.0); MONO # 0.7 10^3/uL (0.0-0.8); MONO % 6.9 % (2.0-8.0); NEUTROPHILS # 8.9 10^3/uL (1.5-8.5); PLATELET COUNT, AUTOMATED 205 10^3/uL (150-450); RED BLOOD COUNT 4.98 10^6/uL (4.30-6.10); WHITE BLOOD COUNT 10.2 10^3/uL (4.0-10.0)
[2024-04-01] MEDS: IPRATROPIUM 0.5MG/ALBUTEROL 2.5MG INH SOL UD 3ML (DUONEB) NEB ONE (12:27)
[2024-04-01] MEDS: guaiFENesin SYRUP 200MG 10ML UDC PO ONE (12:44)
[2024-04-01] MEDS: NS (Normal Saline) 0.9% 1,000 ML IV ONE ×2 (12:45→15:23)
[2024-04-01 12:50] LABS: ALBUMIN 3.6 G/DL (3.2-5.2); ALKALINE PHOSPHATASE 69 U/L (40-129); ALT/SGPT 52 U/L (7.0-40); AST/SGOT 67 U/L (<34); BILIRUBIN,DIRECT 0.6 MG/DL (<0.4); BILIRUBIN,TOTAL 1.5 MG/DL (0.3-1.2); BLOOD UREA NITROGEN 24 MG/DL (9-23); CALCIUM LEVEL 8.6 MG/DL (8.3-10.6); CARBON DIOXIDE LEVEL 27 MMOL/L (20-31); CHLORIDE LEVEL 104 MMOL/L (98-107); CPK CREATINE PHOSPHOKINASE 344 U/L (46-171); CREATININE FOR GFR 0.63 MG/DL (0.70-1.30); GLOMERULAR FILTRATION RATE > 60.0 (>49); GLUCOSE, FASTING 296 MG/DL (74-106); MB/CK RELATIVE INDEX 1.16 (< OR =4); POTASSIUM SERUM 3.7 MMOL/L (3.5-5.1); SODIUM LEVEL 144 MMOL/L (136-145); TOTAL PROTEIN 6.6 G/DL (5.7-8.2)
[2024-04-01] MEDS ORDERED: MED REC IN PROGRESS XX SCH (13:00)
[2024-04-01] MEDS: PIPERACILLIN/TAZOBACTAM SOD 3.375 GM in DEXTROSE 5% (D5W) ADV/MINI-BAG 50 ML IV ONE (13:39)
[2024-04-01] MEDS ORDERED: PRED10TA2 PO (14:41)
[2024-04-01] MEDS ORDERED: IPRA0.00 INH (14:41)
[2024-04-01] MEDS ORDERED: METF-838 PO (14:41)
[2024-04-01] MEDS ORDERED: ALBU2.5V10 INH (14:41)
[2024-04-01] MEDS ORDERED: PRED20TA PO (14:41)
[2024-04-01] MEDS ORDERED: MUCI1TAB16 PO (14:41)
[2024-04-01] MEDS ORDERED: HOME MED LIST COMPLETE! XX SCH (14:45)
[2024-04-01] MEDS ORDERED: ISOVUE-370 76% 100ML VIAL As Ordered ONE (15:01)
[2024-04-01 15:32] LABS: C REACTIVE PROTEIN QUANTITATIV 0.83 MG/DL (<1.0)
[2024-04-01 15:44] LABS: PROCALCITONIN 0.04 ng/ml
[2024-04-01 15:55] LABS: ABG BASE EXCESS -0.1 (-2.0-2.0); ABG HCO3 23.1 MMOL/L (22.0-26.0); ABG O2 SATURATION 94.1 % (95.0-99.0); ABG PARTIAL PRESSURE CO2 33.9 mmHg (35.0-45.0); ABG PARTIAL PRESSURE O2 72.3 mmHg (75.0-100.0); ABG STANDARD HCO3 24.3 MMOL/L. (22.0-26.0); ABG TOTAL CO2 24.1 MMOL/L (23.0-31.0); ABG pH (ARTERIAL) 7.451 UNITS (7.350-7.450)
[2024-04-01] MEDS ORDERED: ACETAMINOPHEN 325 MG TAB PO PRN (16:10)
[2024-04-01] MEDS ORDERED: ALBUTEROL 90 MCG/ACT 8GM HFA INHALER INH PRN (16:15)
[2024-04-01] MEDS ORDERED: GLUCOSE 4 GM CHEW PO PRN (16:30)
[2024-04-01] MEDS ORDERED: DEXTROSE 50% 50ML SYRINGE IV PRN (16:30)
[2024-04-01] MEDS ORDERED: GLUCAGON INJ 1MG VIAL SC PRN (16:30)
[2024-04-01] MEDS: INSULIN LISPRO (NovoLOG) PER UNIT SC SCH ×2 (17:30→21:00)
[2024-04-01] MEDS: FORMOTEROL FUMARATE 20 MCG/2 ML INHALATION SOLUTION (PERFOROMIST) INH SCH (19:15)
[2024-04-01] MEDS: LEVALBUTEROL 1.25MG 0.5ML CONCENTRATE NEB INH SCH (19:16)
[2024-04-01] MEDS: BUDESONIDE 0.5 MG/2 ML INHALATION SUSPENSION INH SCH (19:16)
[2024-04-01] MEDS: NS (Normal Saline) 0.9% 1,000 ML IV SCH (19:38)
[2024-04-01 21:17] VITALS: BP 147/71; TEMP 98.6; O2SAT 96
[2024-04-01] MEDS: PANTOPRAZOLE 40MG TAB (PROTONIX) PO SCH (21:17)
[2024-04-01] MEDS: guaiFENesin ER TABLET 600 MG TAB PO SCH (21:18)
[2024-04-01] MEDS: CARVedilol 3.125 MG TAB PO SCH (21:18)
[2024-04-01] MEDS: CEFDINIR 300 MG CAP (OMNICEF) PO SCH (21:25)
[2024-04-01 22:00] VITALS: O2SAT 97
[2024-04-01 23:00] VITALS: O2SAT 98
[2024-04-01 23:18] VITALS: O2SAT 97
[2024-04-01] MEDS ORDERED: PILL CUTTER 1 EACH XX PRN (23:50)
[2024-04-02] VITALS (26 sets, daily range): BP systolic 103–197; BP diastolic 54–100; TEMP 97.2–98.7; O2SAT 89–99
[2024-04-02] MEDS: tiZANidine 4 MG TAB PO ONE (00:03)
[2024-04-02 05:07] LABS: BASO % 0.1 % (0.0-1.0); HEMATOCRIT 38.3 % (42.0-52.0); LYMPH # 0.6 10^3/uL (1.5-5.0); LYMPH % 9.1 % (24.0-44.0); MEAN CORPUSCULAR HEMOGLOBIN 33.6 pg (27.0-33.0); MEAN CORPUSCULAR HGB CONC 35.5 g/dl (32.0-36.5); MEAN CORPUSCULAR VOLUME 94.6 fl (80.0-96.0); MONO # 0.6 10^3/uL (0.0-0.8); MONO % 8.4 % (2.0-8.0); NEUTROPHILS # 5.7 10^3/uL (1.5-8.5); PLATELET COUNT, AUTOMATED 140 10^3/uL (150-450); RED BLOOD COUNT 4.05 10^6/uL (4.30-6.10); WHITE BLOOD COUNT 6.9 10^3/uL (4.0-10.0)
[2024-04-02 05:08] LABS: HEMOGLOBIN 13.6 g/dl (13.5-17.5)
[2024-04-02 05:11] LABS: ALBUMIN 2.9 G/DL (3.2-5.2); ALKALINE PHOSPHATASE 52 U/L (40-129); ALT/SGPT 39 U/L (7.0-40); AST/SGOT 34 U/L (<34); BLOOD UREA NITROGEN 23 MG/DL (9-23); CALCIUM LEVEL 7.7 MG/DL (8.3-10.6); CARBON DIOXIDE LEVEL 28 MMOL/L (20-31); CHLORIDE LEVEL 110 MMOL/L (98-107); CREATININE FOR GFR 0.65 MG/DL (0.70-1.30); GLOMERULAR FILTRATION RATE > 60.0 (>49); GLUCOSE, FASTING 203 MG/DL (74-106); POTASSIUM SERUM 4.2 MMOL/L (3.5-5.1); SODIUM LEVEL 147 MMOL/L (136-145); TOTAL PROTEIN 5.3 G/DL (5.7-8.2)
[2024-04-02] MEDS: LEVOTHYROXINE 150MCG TABLET (0.15MG) PO SCH (05:26)
[2024-04-02] MEDS ORDERED: CLOPIDOGREL 75 MG TAB PO SCH (09:00)
[2024-04-02] MEDS: predniSONE 20 MG TAB PO SCH (09:39)
[2024-04-02] MEDS: buPROPion **XL** TABLET 150MG (WELLBUTRIN XL) PO SCH (09:39)
[2024-04-02] MEDS: ATORVASTATIN 20 MG TAB PO SCH (09:39)
[2024-04-02] MEDS: FOLIC ACID 1MG TAB PO SCH (09:40)
[2024-04-02] MEDS ORDERED: LIDOCAINE 4% TOPICAL SOLN 50ML BTL TOP ONE (13:15)
[2024-04-02] MEDS: fentaNYL 100 MCG/2 ML INJECTION IV STA (13:40)
[2024-04-02] MEDS: MIDAZOLAM INJ 2MG/2ML VIAL IV STA ×2 (13:40→14:48)
[2024-04-02] MEDS: fentaNYL 100 MCG/2 ML INJECTION IV ONE (14:15)
[2024-04-02] MEDS: LIDOCAINE PRES-FREE 2% 10ML AMP XX ONE ×2 (14:16→14:17)
[2024-04-02] MEDS: MIDAZOLAM INJ 2MG/2ML VIAL IV ONE (14:16)
[2024-04-03] MEDS: tiZANidine 4 MG TAB PO ONE (00:05)
[2024-04-03 05:02] VITALS: BP 106/57; TEMP 98.1; O2SAT 100
[2024-04-03 08:00] VITALS: BP 105/58; TEMP 97.9; O2SAT 99
[2024-04-03] MEDS: CLOPIDOGREL 75 MG TAB PO SCH (08:35)
[2024-04-03] MEDS: ENOXAPARIN 40MG/0.4ML SYRINGE (J1650 PER 10MG) SC SCH (08:35)
[2024-04-03 20:00] VITALS: BP 131/69; TEMP 98.1; O2SAT 99
[2024-04-03 20:13] VITALS: BP 131/69
[2024-04-04] MEDS: tiZANidine 4 MG TAB PO ONE (00:14)
[2024-04-04 04:30] VITALS: BP 124/62; TEMP 97.3; O2SAT 97
[2024-04-04 08:00] VITALS: BP 157/78
[2024-04-04] MEDS: predniSONE 10MG TAB PO SCH (08:30)
[2024-04-04] MEDS ORDERED: CEFD300CAP PO (11:37)
[2024-04-04] MEDS ORDERED: PRED10TA2 PO (11:37)
[2024-04-04 12:02] VITALS: BP 122/66
[2024-04-07] MEDS ORDERED: predniSONE 20 MG TAB PO SCH (09:00)
[2024-04-10] MEDS ORDERED: predniSONE 10MG TAB PO SCH (09:00)
== END 2024-04-04 14:20 | disposition home or self-care (01) ==
LOC: M ED 11:36 → EDBD 11:36 → M ED INP 16:08 → M ICU 21:09
PROVIDERS: ADMIT Internal Medicine; ATTEND Internal Medicine
DX: R06.00 Dyspnea, unspecified (principal); E87.0 Hyperosmolality and hypernatremia; D72.829 Elevated white blood cell count, unspecified; E87.20 Acidosis, unspecified; R74.01 Elevation of levels of liver transaminase levels; R74.8 Abnormal levels of other serum enzymes; J44.9 Chronic obstructive pulmonary disease, unspecified; C32.9 Malignant neoplasm of larynx, unspecified; Z92.3 Personal history of irradiation; E78.5 Hyperlipidemia, unspecified; I10 Essential (primary) hypertension; I73.9 Peripheral vascular disease, unspecified; I65.23 Occlusion and stenosis of bilateral carotid arteries; E11.9 Type 2 diabetes mellitus without complications; E03.9 Hypothyroidism, unspecified; K70.30 Alcoholic cirrhosis of liver without ascites; F41.9 Anxiety disorder, unspecified; G47.00 Insomnia, unspecified; Z79.51 Long term (current) use of inhaled steroids; Z79.84 Long term (current) use of oral hypoglycemic drugs; Z79.52 Long term (current) use of systemic steroids; Z79.899 Other long term (current) drug therapy; Z79.2 Long term (current) use of antibiotics
CPT/HCPCS: 36415; 36600; 70491; 71045; 71275; 80048; 80053; 80076; 82550; 82553; 82803; 83605; 83735; 83880; 84145; 84295; 84484; 85025; 86140; 87040; 87486; 87581; 87633; 87798; 93005; 93041; 94640; 94760; 96361; 96365; 96375; 96376; 99285; J1650; J1815; J2250; J2543; J3010; J7512; Q9967

== ENCOUNTER → 2024-06-15 | Outpatient (CLI) | payer OTHER ==
[~2024-06-15] MED LIST changes: -BUPR-597 PO; +BUPR-766 PO; +BUPR150T15 PO; -BUPR1TAB53 PO; +MUCI1TAB16 PO
== END ==
LOC: M RAD 12:41
PROVIDERS: ATTEND Surgery
DX: I65.23 Occlusion and stenosis of bilateral carotid arteries (principal)

== ENCOUNTER 2024-08-22 13:52 | Outpatient (RCR) | payer OTHER | END 2024-09-08 | LOC: M ST 13:52 | PROVIDERS: ATTEND Otolaryngology | DX: Z96.3 Presence of artificial larynx (principal) ==

== ENCOUNTER → 2024-08-25 | Outpatient (REF) | payer OTHER ==
[2024-08-25 17:36] LABS: PSA SCREENING 2.05 NG/ML (< 4.00)
[2024-08-25 17:38] LABS: ALT/SGPT 25 U/L (7.0-40); AST/SGOT 22 U/L (<34); CALCIUM LEVEL 9.4 MG/DL (8.3-10.6); CARBON DIOXIDE LEVEL 24 MMOL/L (20-31); CHLORIDE LEVEL 106 MMOL/L (98-107); CREATININE FOR GFR 0.75 MG/DL (0.70-1.30); GLOMERULAR FILTRATION RATE > 90.0 (>49); POTASSIUM SERUM 3.8 MMOL/L (3.5-5.1); SODIUM LEVEL 144 MMOL/L (136-145)
[2024-08-25 17:41] LABS: FREE T4 1.77 NG/DL (0.89-1.76)
[2024-08-25 17:53] LABS: BASO # 0.0 10^3/uL (0.0-0.2); BASO % 0.5 % (0.0-1.0); EOS # 0.1 10^3/uL (0.0-0.5); EOS % 1.6 % (0.0-3.0); LYMPH # 1.3 10^3/uL (1.5-5.0); LYMPH % 20.8 % (24.0-44.0); MONO # 0.7 10^3/uL (0.0-0.8); MONO % 10.7 % (2.0-8.0); NEUTROPHILS # 4.2 10^3/uL (1.5-8.5); NEUTROPHILS % 66.1 % (36.0-66.0); PLATELET COUNT, AUTOMATED 213 10^3/uL (150-450)
[2024-08-25 18:04] LABS: ESTIMATED AVERAGE GLUCOSE 128.0 MG/DL (60-110)
== END ==
LOC: M SFHCCLAY 14:27
PROVIDERS: ATTEND Nurse Practitioner Family
DX: I65.21 Occlusion and stenosis of right carotid artery (principal); G47.00 Insomnia, unspecified; R13.14 Dysphagia, pharyngoesophageal phase; F41.9 Anxiety disorder, unspecified; I10 Essential (primary) hypertension; I73.9 Peripheral vascular disease, unspecified; M54.2 Cervicalgia; J44.9 Chronic obstructive pulmonary disease, unspecified; E03.9 Hypothyroidism, unspecified; L71.9 Rosacea, unspecified; Z93.0 Tracheostomy status; R16.0 Hepatomegaly, not elsewhere classified; R10.84 Generalized abdominal pain; R35.0 Frequency of micturition; K70.30 Alcoholic cirrhosis of liver without ascites; E11.65 Type 2 diabetes mellitus with hyperglycemia

== ENCOUNTER → 2024-09-29 | Outpatient (CLI) | payer OTHER | LOC: M RAD 09:42 | PROVIDERS: ATTEND Nurse Practitioner Family | DX: K70.30 Alcoholic cirrhosis of liver without ascites (principal) ==

== ENCOUNTER → 2024-10-20 | Outpatient (CLI) | payer OTHER | LOC: M PLAIMG 10:33 | PROVIDERS: ATTEND Nurse Practitioner Family | DX: J44.9 Chronic obstructive pulmonary disease, unspecified (principal); Z93.0 Tracheostomy status; F17.211 Nicotine dependence, cigarettes, in remission; I25.10 Atherosclerotic heart disease of native coronary artery without angina pectoris ==

== ENCOUNTER 2024-10-28 07:55 | Outpatient (RCR) | payer OTHER | END 2024-11-08 | LOC: M ST 07:55 | PROVIDERS: ATTEND Otolaryngology | DX: Z96.3 Presence of artificial larynx (principal) ==

== ENCOUNTER 2024-11-13 08:17 | Emergency (ER) | payer OTHER ==
[~2024-11-13] VITALS: Ht 190.5 cm; Wt 100.1 kg
[2024-11-13 09:37] LABS: BASO # 0.0 10^3/uL (0.0-0.2); BASO % 0.3 % (0.0-1.0); EOS # 0.1 10^3/uL (0.0-0.5); EOS % 1.0 % (0.0-3.0); LYMPH # 1.0 10^3/uL (1.5-5.0); LYMPH % 9.1 % (24.0-44.0); MONO # 1.1 10^3/uL (0.0-0.8); MONO % 10.5 % (2.0-8.0); NEUTROPHILS # 8.5 10^3/uL (1.5-8.5); NEUTROPHILS % 78.9 % (36.0-66.0); PLATELET COUNT, AUTOMATED 240 10^3/uL (150-450)
[2024-11-13 09:53] LABS: CK-MB VALUE MASS 1.9 NG/ML (<3.6)
[2024-11-13 09:54] LABS: ALT/SGPT 27 U/L (7.0-40); AST/SGOT 20 U/L (<34); CALCIUM LEVEL 9.2 MG/DL (8.3-10.6); CARBON DIOXIDE LEVEL 25 MMOL/L (20-31); CHLORIDE LEVEL 106 MMOL/L (98-107); CREATININE FOR GFR 0.70 MG/DL (0.70-1.30); GLOMERULAR FILTRATION RATE > 90.0 (>49); POTASSIUM SERUM 3.9 MMOL/L (3.5-5.1); SODIUM LEVEL 140 MMOL/L (136-145)
[2024-11-13 09:58] LABS: CPK CREATINE PHOSPHOKINASE 85 U/L (46-171); MB/CK RELATIVE INDEX 2.23 (< OR =4)
[2024-11-13 10:44] LABS: CK-MB VALUE MASS 1.6 NG/ML (<3.6)
[2024-11-13 10:45] LABS: CPK CREATINE PHOSPHOKINASE 79 U/L (46-171); MB/CK RELATIVE INDEX 2.02 (< OR =4)
[2024-11-13] MEDS ORDERED: ISOVUE-370 76% 100 ML VIAL As Ordered ONE (10:45)
[2024-11-13] MEDS ORDERED: LEVO75TAB PO (13:14)
[2024-11-13] MEDS ORDERED: MEDR4PAK PO (13:14)
[2024-11-13 13:24] VITALS: TEMP 98.7
[2024-11-13 13:37] VITALS: O2SAT 96
[2024-11-13 13:49] VITALS: BP 150/82
== END 2024-11-13 13:54 | disposition home or self-care (01) ==
LOC: M ED 08:17
DX: J20.9 Acute bronchitis, unspecified (principal); E11.9 Type 2 diabetes mellitus without complications; R04.2 Hemoptysis; R05.9 Cough, unspecified; R79.9 Abnormal finding of blood chemistry, unspecified; I49.3 Ventricular premature depolarization; I10 Essential (primary) hypertension; K21.9 Gastro-esophageal reflux disease without esophagitis; E78.5 Hyperlipidemia, unspecified; Z87.891 Personal history of nicotine dependence; Z79.52 Long term (current) use of systemic steroids; Z79.02 Long term (current) use of antithrombotics/antiplatelets; Z79.4 Long term (current) use of insulin; Z79.899 Other long term (current) drug therapy; Z79.2 Long term (current) use of antibiotics
CPT/HCPCS: 36415; 70491; 71275; 80048; 80076; 82550; 82553; 83690; 84484; 85025; 87070; 87184; 87205; 87486; 87581; 87633; 87798; 93005; 93041; 99285; Q9967

== ENCOUNTER 2024-12-30 07:56 | Outpatient (RCR) | payer OTHER ==
[~2024-12-30 07:56] MED LIST changes: +LEVO75TAB PO; +MEDR4PAK PO
== END 2025-01-08 ==
LOC: M ST 07:56
PROVIDERS: ATTEND Otolaryngology
DX: Z96.3 Presence of artificial larynx (principal)

== ENCOUNTER → 2025-01-09 | Outpatient (CLI) | payer OTHER | LOC: M RAD 07:34 | PROVIDERS: ATTEND Otolaryngology | DX: Z85.21 Personal history of malignant neoplasm of larynx (principal) ==

== ENCOUNTER → 2025-01-09 | Outpatient (CLI) | payer OTHER ==
[~2025-01-09] MED LIST changes: +E-Z-GAS II EFFERVESCENT PACKET (SODIUM BICARB./CITRIC ACID/SIMETHICONE) As Ordered ONE; +E-Z-HD 98% w/w 340 GM SUSP BTL As Ordered ONE; +E-Z-PAQUE 96% w/w SUSP 176 GM BTL As Ordered ONE
== END ==
LOC: M RAD 07:37
PROVIDERS: ATTEND Nurse Practitioner Family
DX: Z53.9 Procedure and treatment not carried out, unspecified reason (principal)